=== PATIENT | male | born 1930 | race Caucasian/White ===

== ENCOUNTER 2019-05-06 20:49 | Inpatient (IN) | payer MEDICARE, BC ==
[~2019-05-06] VITALS: Ht 167.6 cm; Wt 73.9 kg
[2019-05-07] VITALS (7 sets, daily range): BP systolic 126–155; BP diastolic 42–75
[2019-05-07] MEDS ORDERED: ASPI81TA50 PO (03:36)
[2019-05-07] MEDS ORDERED: LOPE1LIQ7 PO (03:36)
[2019-05-07] MEDS ORDERED: LEVO112T4 PO (03:36)
[2019-05-07] MEDS ORDERED: ALEN70TA6 PO (03:36)
[2019-05-07] MEDS ORDERED: CYCL1DRO OU (03:36)
[2019-05-07] MEDS ORDERED: MAGN2400 PO (03:36)
[2019-05-07] MEDS ORDERED: DONE5TAB14 PO (03:36)
[2019-05-07] MEDS ORDERED: LUTE1CAP3 PO (03:36)
[2019-05-07] MEDS ORDERED: ACET325T9 PO (03:36)
[2019-05-07] MEDS ORDERED: SIMV40TA3 PO (03:36)
[2019-05-07] MEDS ORDERED: GLUC-9 PO (03:36)
[2019-05-07] MEDS ORDERED: OMEP20CA10 PO (03:36)
[2019-05-07] MEDS ORDERED: OMEG1CAP38 PO (03:36)
[2019-05-07] MEDS ORDERED: LOTE5DRO2 OP (03:36)
[2019-05-07] MEDS ORDERED: DEXT15DR16 OP (03:36)
[2019-05-07] MEDS ORDERED: LOPERAMIDE 2 MG/15 ML ORAL SUSP. PO PRN (04:45)
[2019-05-07] MEDS: LEVOTHYROXINE 112 MCG TABLET PO SCH (05:41)
[2019-05-07] MEDS: IV NORMAL SALINE 1000ML BAG 1,000 ML IV SCH ×2 (05:41→17:15)
[2019-05-07] MEDS ORDERED: ACETAMINOPHEN 325 MG TABLET. PO PRN (08:00)
[2019-05-07] MEDS: cycloSPORINE 0.05% OPHTH DROPERETTE. OU SCH ×2 (09:00→21:02)
[2019-05-07] MEDS ORDERED: LOTEPREDNOL ETAB 0.5% OPHTH SUSPENSION 5ML BOTTLE. OU SCH (09:00)
[2019-05-07] MEDS ORDERED: ASPIRIN ENTERIC COATED 81 MG TABLET.DR. PO SCH (09:00)
--- NOTE | 2019-05-07 09:53 | RAD ---
Ultrasound carotid Doppler 05/07/2019 8:25 AM INDICATION: Right-sided weakness and slurring of speech COMPARISON: None available TECHNIQUE: Sonographic imaging of the carotid vasculature was performed utilizing grayscale, color Doppler and spectral waveform analysis. FINDINGS: (All velocities are measured cm per second) Right carotid: Moderate calcified plaque is identified at the right carotid bifurcation with suspected 50 percent luminal narrowing of the proximal right internal carotid artery on grayscale images. Peak systolic velocity: Proximal common carotid artery: 84 Middle common carotid artery: 90 Distal common carotid artery: 90 Proximal internal carotid artery: 143 Middle internal carotid artery: 131 Distal internal carotid artery: 87 End-diastolic velocity: 30 External carotid artery: 130 Internal carotid artery/common carotid artery ratio: 0.96-1.58 Vertebral artery: Antegrade flow Left carotid: Mild calcified plaque is identified at the left carotid bifurcation without significant grayscale narrowing of the proximal left internal carotid artery. Peak systolic velocity: Proximal common carotid artery: 149 Middle common carotid artery: 125 Distal common carotid artery: 118 Proximal internal carotid artery: 74 Middle internal carotid artery: 99 Distal internal carotid artery: 80 End-diastolic velocity: 14 External carotid artery: 161 Internal carotid artery/common carotid artery ratio: 0.59-0.79 Vertebral artery: Antegrade flow IMPRESSION: 1. 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 There is no significant stenosis of the proximal left cervical internal carotid artery with mild plaque at the left carotid bifurcation. 2. Antegrade flow is identified in the vertebral arteries. 3. Evaluation of the carotid vasculature and measurements for luminal stenosis was performed utilizing NASCET criteria. Electronically signed by: Tayler Fernandes MD (05/07/2019 9:51 AM) [facility]
--- NOTE | 2019-05-07 11:08 | HP ---
ADMIT DATE: 05/07/2019 HISTORY OF PRESENT ILLNESS: The patient is an 88-year-old male patient, a resident at [facility], who was brought to the Emergency Room of [facility] for evaluation. The nursing staff at [place] as well as his family noted increasing change in his behavior status, intermittent weakness of his right side over the last 5 days, which seems to have worsened over the last 24 hours. According to his family, he fell a few times over this past weekend and then began exhibiting some intermittent weakness in his right side of the past few days. He actually was evaluated in the Emergency Room 2 days ago and recommended admitting into the hospital, but the family was adamant they take him back. However, yesterday around lunchtime he started having slurred speech and decreased communication. He has increased generalized weakness compared to what he was seen for according to staff who was familiar with him. The patient himself denied any pain. He apparently was evaluated in the Emergency Room and has had a CT scan of the head, which basically showed hypodensity in the white matter of the left frontal lobe, new compared to study done in 2018. This may represent an area of subacute or chronic ischemia. Further evaluation with MRI brain without contrast is recommended and therefore, the patient was transferred to [facility] for an MRI of the brain as well as to consult the Neurology team. The patient is demented and does not really give useful information. PAST MEDICAL HISTORY: Significant for cervical spinal stenosis, generalized osteoarthritis, dizziness and lightheadedness, gastroesophageal reflux disease, coronary artery disease, chronic constipation, pure hypercholesterolemia, hypothyroidism, actinic keratosis, angina pectoris, benign prostatic hypertrophy, recurrent urinary tract infection. He is also known to have essential hypertension, chronic pain syndrome, depressive disorder, keratoconjunctivitis sicca and glaucoma as well as macular degeneration, osteoporosis without pathological fracture and amnesia. PAST SURGICAL HISTORY: Significant for right knee surgery, partial thyroidectomy and bilateral cataract extraction. ALLERGIES: HE APPARENTLY IS ALLERGIC TO AMOXICILLIN, ANTICOAGULANT HEPARIN AND IBUPROFEN. MEDICATIONS: He is currently on following medications: He is on Aricept 5 mg at bedtime, simvastatin 40 mg at bedtime, omega-3 fatty acid 1000 mg twice a day, aspirin 81 mg once a day, acetaminophen 650 mg every 4 hours. He is on Lotemax 1 drop to both eyes daily, cyclosporine for Restasis 1 drop to both eyes twice a day. He is on artificial tears 1 drop to each eye 3 times a day, loperamide 2 mg every 6 hours as needed, milk of magnesia 30 mL p.o. daily p.r.n. for constipation, omeprazole 20 mg daily, levothyroxine sodium 112 mcg daily, alendronate sodium 70 mg p.o. daily. He is on glucosamine/chondroitin complex tablet 1 tablet once a day in routine. He is on Ocuvite 1 tablet daily. FAMILY HISTORY: Noncontributory. SOCIAL HISTORY: He currently resides at [facility] together with his . He used to live at [facility]. He apparently does not smoke, drink alcohol or use any drugs. 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 PHYSICAL EXAMINATION: GENERAL: When I saw him, he looked well and was clearly in no apparent respiratory distress, pale, but no jaundice, cyanosis or thyromegaly. No jugular venous distention. No lower limb edema. VITAL SIGNS: His heart rate was 79, blood pressure was 147/68, temperature was 98, respiratory rate was 17 and oxygen saturation was 96%. HEAD, EYES, EARS, NOSE AND THROAT: Showed normocephalic, atraumatic. NECK: Supple. HEART: Showed normal first and second heart sounds. No gallop or murmur. CHEST: Clear to auscultation. No crepitation or rhonchi. ABDOMEN: Distended, soft, nontender. No guarding or rigidity. No organomegaly. All hernia orifice intact. Bowel sounds normal. NEUROLOGIC: He is demented, but all his cranial nerves are intact. He seemed to be moving all his extremities without difficulty, although apparently yesterday, he was noted to have right-sided weakness, slurring of speech and increased confusion. LABORATORY DATA: His lab work showed that his white cell count was 11,600, hemoglobin 14.8, hematocrit 43.5, MCV 99, platelet count 261,000. His chemistry showed a serum sodium 137, potassium 3.4, chloride 100, bicarbonate 26, anion gap of 11, BUN 19, creatinine 1.2, estimated GFR was 57 mL per minute, his glucose 117, calcium was 9.4. Total bilirubin, AST, ALT, alkaline phosphatase were normal. Total protein 7.5, albumin 3.3. His prothrombin time, INR and aPTT are all normal. His CT scan of the head showed that the patient has no focal parenchymal lesion or hemorrhage identified. There is no midline shift or sulcal effacement. Hypodensity within the white matter of the left frontal lobe, which is new when compared to the study in 2018. Montesinos white distinction is preserved. The ventricular system is within normal limits without compression or hydrocephalus. The basal cisterns are well maintained. The visualized portion of the paranasal sinuses and mastoid air cells are well pneumatized. No acute fracture. His chest x-ray showed no acute cardiopulmonary process, mild elevation of the right hemidiaphragm. Therefore, the patient was admitted to [facility] to consult neurologist, arrange for an MRI of the brain and consult Physical and Occupational as well as Speech Therapy. JARRED VELA MD DR: ELADIO/galdino JOB#: [id number] / [id number]
--- NOTE | 2019-05-07 15:37 | RAD ---
EXAMINATION: Magnetic resonance imaging (MRI) of the brain and brainstem without contrast 05/07/2019 1:29 PM HISTORY: Stroke TECHNIQUE: Multiplanar multi-weighted MRI of the brain and brainstem was performed without intravenous contrast using the general brain protocol. COMPARISON: None available. FINDINGS: The scalp and calvarium are normal. The superior sagittal sinus demonstrates normal venous flow. The corpus callosum is normal in shape and signal intensity. The pituitary and sella are normal. The brainstem and craniocervical junction are unremarkable. There is diffusion signal hyperintensity involving the left cingulate gyrus and medial left frontal lobe in the expected distribution of the left anterior cerebral artery. There is corresponding low ADC signal. There is involvement of the body of the corpus callosum on the left. There are T2/FLAIR signal hyperintense foci in the periventricular and subcortical white matter with areas of confluence most suggestive of moderate chronic small vessel ischemic changes. The susceptibility weighted sequences reveal no evidence of acute or chronic hemorrhage. Ventricles, sulci and basal cisterns are prominent compatible with moderate generalized cerebral volume loss. No hydrocephalus. There is mild to moderate cerebellar volume loss. The paranasal sinuses are normal. The visualized portions of the mastoids are unremarkable. The orbits appear normal with exception of bilateral lens replacement. Normal flow voids are demonstrated in the carotid arteries and basilar artery. There is irregularity of the left anterior cerebral artery flow void which may reflect intracranial atherosclerotic changes. IMPRESSION: 1. 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 Findings are within the region of the left anterior cerebral artery territory. There is associated cytotoxic edema without significant midline shift. No acute intracranial hemorrhage. 2. There are T2/FLAIR signal hyperintense foci in the periventricular and subcortical white matter with areas of confluence most suggestive of moderate chronic small vessel ischemic changes. 3. Moderate general cerebral volume loss. FOR INTERNAL CODING PURPOSES Critical result: Findings discussed with Addi, the patient's nurse, at 05/07/2019 3:31 PM. RESULT CODE: (C) Electronically signed by: Tayler Fernandes MD (05/07/2019 3:34 PM) [facility]
[2019-05-07] MEDS: ASPIRIN ENTERIC COATED 325 MG TABLET.DR. PO SCH (17:15)
--- NOTE | 2019-05-07 18:51 | PDOC2 ---
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 Cerebral edema. Metabolic encephalopathy. 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 CAD. HTN. HLD. Hypothyroidism. RECOMMENDATIONS/PLAN: ASA 325 mg daily. Zocor 40 mg HS. Echo. Lab: see orders. Consulted Vascular Surgery. PT/PT. Rehab. HISTORY OF THE PRESENT ILLNESS: This is an 88-year-old male patient, a resident at [facility], who was brought to the Emergency Room of [facility] due to concerns of TIA or CVA.. The nursing staff at [place] as well as his family noted increasing change in his behavior status, intermittent weakness of his right side over the last 5 days, which seems to have worsened over the last 24 hours. He fell a few times over this past weekend then family noted some intermittent weakness in his right side of the past few days. After initial evaluation in [facility], he was transferred to [facility]. PAST MEDICAL HISTORY: Cervical spinal stenosis, generalized osteoarthritis, dizziness and lightheadedness, gastroesophageal reflux disease, coronary artery disease, chronic constipation, pure hypercholesterolemia, hypothyroidism, actinic keratosis, angina pectoris, benign prostatic hypertrophy, recurrent urinary tract infection. He is also known to have essential hypertension, chronic pain syndrome, depressive disorder, keratoconjunctivitis sicca and glaucoma as well as macular degeneration, osteoporosis without pathological fracture and amnesia. PAST SURGICAL HISTORY: Right knee surgery, partial thyroidectomy and bilateral cataract extraction. ALLERGIES: ALLERGIC TO AMOXICILLIN, ANTICOAGULANT HEPARIN AND IBUPROFEN. FAMILY HISTORY: Noncontributory. SOCIAL HISTORY: He currently resides at [facility] together with his . He used to live at [facility]. He apparently does not smoke, drink alc ohol or use any drugs. 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 MEDICATIONS: Refer to [facility] REVIEW OF SYSTEMS: Constitutional: No malnutrition, weight loss, cachexia. Head: No recent traumatic brain or head injury. Skin: No edema, or rash. Ear: No infection. Eyes: No vision loss or color blindness. Nose: No bleeding or purulent discharges. Hearing: Hearing decrease. Neck: No injury. Cardiac: CAD, HTN, HLD. Pulmonary: No COPD. GI: GERD. Urinary/genital: NUTI. Endocrinologic: Hypothyroidism. Skeletomuscular: Generalized weakness. Neurological: see HP. Psychiatric: Denies drug use/abuse. Otherwise, not [id number] review of systems. PHYSICAL EXAMINATION: General appearance is in subacute distress. HEENT: Normocephalic and nontraumatic. Eyes, nose, ears, and throat are unremarkable. Neck is supple. No lymphadenopathy. No crepitus. Cardiovascular: S1, S2. Pulmonary: mildly decreased to auscultation bilaterally. Abdomen: Bowel sounds are positive. Extremities: No rash, lesions, or edema. No restriction of range of motion NEUROLOGICAL EXAMINATION: Awake. Not oriented to time, place and person. PERRL. EOMI. CN: no focal findings. Muscle tone: within normal. Muscle strength: 4 UE, 4- LE. DTR: 1-2 Plantar reflex: Neutral response bilaterally Gait: not examined in bed. Sensory exam: no abnormal findings. No other cerebellar signs elicited. F-T-N test not performed due to not follow commands. Current Medications Current Medications Current Medications Acetaminophen (Tylenol) 650 mg PRN Q4HRS PRN PO MILD PAIN / TEMP; Start 05/07/19 at 08:00 Aspirin (Ecotrin) 81 mg DAILY PO ; Start 05/07/19 at 09:00; Stop 05/07/19 at 16:30; Status DC Cyclosporine (Restasis) 1 drop BID OU Last administered on 05/07/19at 09:00; Start 05/07/19 at 09:00 Levothyroxine Sodium (Synthroid) 112 mcg DAILY06 PO Last administered on 05/07/19at 05:41; Start 05/07/19 at 06:00 Loperamide HCl (Immodium Oral Susp) 2 mg PRN DAILY PRN PO DIARRHEA; Start 05/07/19 at 04:45 Loteprednol Etabonate (Lotemax) 1 drop DAILY OU ; Start 05/07/19 at 09:00; Stop 05/07/19 at 07:12; Status DC Simvastatin (Zocor) 40 mg HS PO ; Start 05/07/19 at 21:00 Sodium Chloride 1,000 ml @ 75 mls/hr [id number] IV Last administered on 05/07at 17:15; Start 05/07/19 at 05:00 Aspirin (Ecotrin) 325 mg DAILYWBKFT PO Last administered on 05/07/19at 17:15; Start 05/07/19 at 16:30 Active Scripts Active Reported Imodium A-D (Loperamide Hcl) 1 Mg/7.5 Ml Liquid 2 Mg PO PRN DAILY PRN Milk Of Magnesia (Magnesium Hydroxide) 2,400 Mg/10 Ml Oral.susp 2,400 Mg PO PRN DAILY Donepezil Hcl 5 Mg Tab.rapdis 5 Mg PO HS Lutein 15 Mg Softgel (Lutein Extract/Zeaxanthin Ext) 1 Each Capsule 1 Each PO DAILY Genteal Tears 0.1%-0.3% Drop (Dextran 70/Hypromellose) 15 Ml Drops 15 Ml OP TID Lotemax (Loteprednol Etabonate) 5 Ml Drops.susp 5 Ml OP DAILY Alendronate Sodium 70 Mg Tablet 70 Mg PO WEEKLY Takes on Mondays Omeprazole 20 Mg Capsule. 20 Mg PO DAILY Simvastatin 40 Mg Tablet 40 Mg PO HS Glucosamine Chondroitin Caplet (Gluc Bran Dipo Ch/Rodrigue Bran/C/Melvin) 1 Each Tablet 1 Each PO DAILY [place] 3 Fish Oil Softgel ([place]-3 Fatty Acids/Fish Oil) 1 Each Capsule. 1 Each PO BID Aspir-Low (Aspirin) 81 Mg Tablet. 81 Mg PO DAILY Tylenol (Acetaminophen) 325 Mg Tablet 650 Mg PO Q4HRS Levothyroxine Sodium 112 Mcg Tablet 112 Mcg PO DAILYAC Restasis (Cyclosporine) 1 Each Droperette 1 Each OU BID Allergies Allergies: Allergies Coded Allergies Type Severity Reaction Last Updated Verified amoxicillin Allergy Intermediate 05/07/19 Yes apixaban Allergy Intermediate 05/07/19 Yes dabigatran etexilate Allergy Intermediate 05/07/19 Yes heparin Allergy Intermediate 05/07/19 Yes ibuprofen Allergy Intermediate 05/07/19 Yes warfarin Allergy Intermediate 05/07/19 Yes ROS Review of System The patient denies any associated fevers, chills, headache, ear pain, rhinorrhea, sore throat, stiff neck, productive cough, chest pain, shortness of breath, back or flank pain, abdominal pain, nausea, vomiting, diarrhea, constipation, dysuria, rash, numbness, weakness, tingling, incontinence, difficulty ambulating, or diaphoresis. Physical Exam Physical Exam General: Well developed, well nourished, no acute distress, well appearing HEENT: Pupils equally round and reactive to light, EOMI, no discharge, normal conjunctiva Neck: Supple, no nuchal rigidity, no JVD, trachea midline, no tenderness Cardiac: RRR, no murmurs, no gallops, no rubs Chest/Lungs: CTAB, no wheeze, no rhonchi, no crackles Abdomen: soft, non-distended, no guarding, no peritoneal signs, non-tender Back: No tenderness Extremities: no edema, pulses intact, non-tender,capillary refill <3 sec bilateral upper and lower extremities, Neuro: Alert and oriented x 4, no focal deficits, normal speech Vitals Vitals: Vital Signs Date Time Temp Pulse Resp B/P (MAP) Pulse Ox O2 Delivery O2 Flow Rate FiO2 05/07/19 16:30 Room Air 05/07/19 15:00 98.0 83 18 155/73 (100) 94 98.0 MUKUL RODRÍGUEZ MD May 07, 2019 18:51
[2019-05-07] MEDS: SIMVASTATIN 40 MG TABLET. PO SCH (21:02)
[2019-05-08 03:00] VITALS: BP 149/68
[2019-05-08 05:11] LABS: CALCIUM 8.6 mg/dL (8.5-10.1); CREATININE 0.9 mg/dL (0.7-1.3); GFR 79.6; POTASSIUM 3.1 mmol/L (3.5-5.1)
[2019-05-08 05:22] LABS: CHOLESTEROL/HDL RATIO 4.8
[2019-05-08] MEDS: LEVOTHYROXINE 112 MCG TABLET PO SCH (06:10)
[2019-05-08 07:00] VITALS: BP 134/60
[2019-05-08] MEDS: IV NORMAL SALINE 1000ML BAG 1,000 ML IV SCH ×2 (07:40→20:28)
[2019-05-08] MEDS ORDERED: POTASSIUM CHLORIDE 20 MEQ TABLET.ER. PO ONE (09:00)
--- NOTE | 2019-05-08 10:12 | PN ---
DATE: 05/08/2019 SUBJECTIVE: The patient is resting slightly propped up in bed, eating his breakfast comfortably. He is able to use his right hand, feeding himself. His MRI showed that he has an acute infarct involving the medial left frontal lobe with involvement of the cingulate gyrus and body of the corpus callosum, he has also right internal carotid artery showed bifurcation, stenosis 50-69%. PHYSICAL EXAMINATION: GENERAL: On examining him, he looked well and was clearly in no apparent respiratory distress. No pallor, jaundice, cyanosis or thyromegaly. No jugular venous distention. No limb edema. VITAL SIGNS: His heart rate was 82, blood pressure 149/69, temperature was 98.1, respiratory rate was 18 and oxygen saturation was 94%. HEAD, EYES, EARS, NOSE AND THROAT: Showed normocephalic, atraumatic. NECK: Supple. HEART: Showed normal first and second heart sounds. No gallop, rub or murmur. CHEST: Clear to auscultation. No crepitation or rhonchi. ABDOMEN: Distended, soft, nontender. No guarding or rigidity. No organomegaly. All hernial orifice intact. Bowel sounds normal. NEUROLOGIC: He was definitely awake, alert. All his cranial nerves are intact. He moves extremities without difficulty. His intake and output were incompletely recorded. LABORATORY DATA: Showed a serum sodium 142, potassium 3.1, chloride 108, bicarbonate 24, anion gap of 10, BUN 10, creatinine 0.9, estimated GFR was 79 mL per minute. His glucose was 103, calcium was 8.6. Serum triglycerides were 85, total cholesterol 191, LDL was 134, VLDL was 17, and HDL cholesterol was 40, ratio was 4.8. TSH was normal at 3.570. 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 PLAN: To continue with all his current medications. He is on simvastatin, aspirin, Tylenol, levothyroxine and loperamide. The vascular surgeon was consulted. The result has not been seen yet. Have consulted Physical and Occupational therapy. We will replenish his potassium. JARRED VELA MD DR: ELADIO/galdino JOB#: [id number] / [id number]
[2019-05-08] MEDS: cycloSPORINE 0.05% OPHTH DROPERETTE. OU SCH ×2 (10:18→20:29)
[2019-05-08] MEDS: ASPIRIN ENTERIC COATED 325 MG TABLET.DR. PO SCH (10:18)
[2019-05-08] MEDS: POTASSIUM CHLORIDE 20 MEQ TABLET.ER. PO SCH ×3 (11:04→20:29)
[2019-05-08 11:30] VITALS: BP 136/58
--- NOTE | 2019-05-08 12:58 | PDOC ---
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 CAD. HTN. HLD. Hypothyroidism. Plan Aspirin failure, reduced to 81 mg daily and add clopidogrel Zocor 40 mg HS. Await Echo. Does not need Vascular Surgery consult. Rehab, will need SNU. Discussed with family including risks of bleeding on the aspirin/clopidogrel com bination Subjective No complaints Objective Vital Signs Date Time Temp Pulse Resp B/P (MAP) Pulse Ox O2 Delivery O2 Flow Rate FiO2 05/08/19 08:00 Room Air 05/08/19 07:00 98.4 80 24 134/60 (84) 93 98.4 Intake and Output 05/08/19 07:00 Intake Total 240 ml Output Total 1700 ml Balance -1460 ml Intake Oral 240 ml Output Urine Total 1700 ml # Voids 3 PHYSICAL EXAM Alert. Oriented to person, does not know location or date. PERRL. EOMI. CN: Dysarthria, right central facial paresis Muscle tone: normal. Muscle strength: 4/5, weaker on right DTR: 1+ Plantar reflex: flexor Gait: not examined in bed. Sensory exam: no abnormal findings. No cerebellar signs elicited. Review of Relevant I have reviewed the following items hector (where applicable) has been applied. Labs Laboratory Tests Test 05/08/19 04:35 Sodium Level 142 mmol/L (136-145) Potassium Level 3.1 mmol/L (3.5-5.1) Chloride Level 108 mmol/L (98-107) Carbon Dioxide Level 24 mmol/L (21-32) Anion Gap 10 (6-14) Blood Urea Nitrogen 10 mg/dL (8-26) Creatinine 0.9 mg/dL (0.7-1.3) Estimated GFR (Cockcroft-Gault) 79.6 Glucose Level 103 mg/dL (70-99) Calcium Level 8.6 mg/dL (8.5-10.1) Triglycerides Level 85 mg/dL (0-150) Cholesterol Level 191 mg/dL (0-200) LDL Cholesterol, Calculated 134 mg/dL (0-100) VLDL Cholesterol, Calculated 17 mg/dL (0-40) Non-HDL Cholesterol Calculated 151 mg/dL (0-129) HDL Cholesterol 40 mg/dL (40-60) Cholesterol/HDL Ratio 4.8 Thyroid Stimulating Hormone (TSH) 3.570 uIU/mL (0.358-3.74) Laboratory Tests Test 05/08/19 04:35 Sodium Level 142 mmol/L (136-145) Potassium Level 3.1 mmol/L (3.5-5.1) Chloride Level 108 mmol/L (98-107) Carbon Dioxide Level 24 mmol/L (21-32) Anion Gap 10 (6-14) Blood Urea Nitrogen 10 mg/dL (8-26) Creatinine 0.9 mg/dL (0.7-1.3) Estimated GFR (Cockcroft-Gault) 79.6 Glucose Level 103 mg/dL (70-99) Calcium Level 8.6 mg/dL (8.5-10.1) Triglycerides Level 85 mg/dL (0-150) Cholesterol Level 191 mg/dL (0-200) LDL Cholesterol, Calculated 134 mg/dL (0-100) VLDL Cholesterol, Calculated 17 mg/dL (0-40) Non-HDL Cholesterol Calculated 151 mg/dL (0-129) HDL Cholesterol 40 mg/dL (40-60) Cholesterol/HDL Ratio 4.8 Thyroid Stimulating Hormone (TSH) 3.570 uIU/mL (0.358-3.74) Medications Current Medications Acetaminophen (Tylenol) 650 mg PRN Q4HRS PRN PO MILD PAIN / TEMP; Start 05/07/19 at 08:00 Aspirin (Ecotrin) 81 mg DAILY PO ; Start 05/07/19 at 09:00; Stop 05/07/19 at 16:30; Status DC Cyclosporine (Restasis) 1 drop BID OU Last administered on 05/08/19at 10:18; Start 05/07/19 at 09:00 Levothyroxine Sodium (Synthroid) 112 mcg DAILY06 PO Last administered on at 06:10; Start 05/07/19 at 06:00 Loperamide HCl (Immodium Oral Susp) 2 mg PRN DAILY PRN PO DIARRHEA; Start 05/07/19 at 04:45 Loteprednol Etabonate (Lotemax) 1 drop DAILY OU ; Start 05/07/19 at 09:00; Stop 05/07/19 at 07:12; Status DC Simvastatin (Zocor) 40 mg HS PO Last administered on 05/07/19at 21:02; Start 05/07/19 at 21:00 Sodium Chloride 1,000 ml @ 75 mls/hr [id number] IV Last administered on 05/07/19at 17:15; Start 05/07/19 at 05:00 Aspirin (Ecotrin) 325 mg DAILYWBKFT PO Last administered on 05/08/19at 10:18; Start 05/07/19 at 16:30 Potassium Chloride (Klor-Con) 40 meq 1X ONCE PO Last administered on 9at 10:18; Start 05/08/19 at 09:00; Stop 05/08/19 at 09:01; Status DC Potassium Chloride (Klor-Con) 20 meq TID PO Last administered on 05/08/19at 11:04; Start 05/08/19 at 10:00 Active Scripts Active Reported Imodium A-D (Loperamide Hcl) 1 Mg/7.5 Ml Liquid 2 Mg PO PRN DAILY PRN Milk Of Magnesia (Magnesium Hydroxide) 2,400 Mg/10 Ml Oral.susp 2,400 Mg PO PRN DAILY Donepezil Hcl 5 Mg Tab.rapdis 5 Mg PO HS Lutein 15 Mg Softgel (Lutein Extract/Zeaxanthin Ext) 1 Each Capsule 1 Each PO DAILY Genteal Tears 0.1%-0.3% Drop (Dextran 70/Hypromellose) 15 Ml Drops 15 Ml OP TID Lotemax (Loteprednol Etabonate) 5 Ml Drops.susp 5 Ml OP DAILY Alendronate Sodium 70 Mg Tablet 70 Mg PO WEEKLY Takes on Mondays Omeprazole 20 Mg Capsule. 20 Mg PO DAILY Simvastatin 40 Mg Tablet 40 Mg PO HS Glucosamine Chondroitin Caplet (Gluc Bran Dipo Ch/Ordrigue Bran/C/Melvin) 1 Each Tablet 1 Each PO DAILY Singer 3 Fish Oil Softgel ([place]inger-3 Fatty Acids/Fish Oil) 1 Each Capsule. 1 Each PO BID Aspir-Low (Aspirin) 81 Mg Tablet. 81 Mg PO DAILY Tylenol (Acetaminophen) 325 Mg Tablet 650 Mg PO Q4HRS Levothyroxine Sodium 112 Mcg Tablet 112 Mcg PO DAILYAC Restasis (Cyclosporine) 1 Each Droperette 1 Each OU BID Vitals/I & O Vital Sign - Last 24 Hours 05/07/19 05/07/19 05/07/19 05/07/19 15:00 16:30 19:00 23:00 Temp 98.0 98.2 97.8 98.0 98.2 97.8 Pulse 83 83 86 Resp 18 18 18 B/P (MAP) 155/73 (100) 145/74 (97) 153/75 (101) Pulse Ox 94 93 92 O2 Delivery Room Air Room Air Room Air Room Air 05/08/19 05/08/19 05/08/19 03:00 07:00 08:00 Temp 98.1 98.4 98.1 98.4 Pulse 82 80 Resp 18 24 B/P (MAP) 149/68 (95) 134/60 (84) Pulse Ox 94 93 O2 Delivery Room Air Room Air Room Air Intake and Output 05/07/19 05/07/19 05/08/19 15:00 23:00 07:00 Intake Total 0 ml 240 ml Output Total 50 ml 1650 ml Balance 0 ml 190 ml -1650 ml Images Magnetic resonance imaging (MRI) of the brain and brainstem without contrast 05/07/2019 1:29 PM HISTORY: Stroke TECHNIQUE: Multiplanar multi-weighted MRI of the brain and brainstem was performed without intravenous contrast using the general brain protocol. COMPARISON: None available. FINDINGS: The scalp and calvarium are normal. The superior sagittal sinus demonstrates normal venous flow. The corpus callosum is normal in shape and signal intensity. The pituitary and sella are normal. The brainstem and craniocervical junction are unremarkable. There is diffusion signal hyperintensity involving the left cingulate gyrus and medial left frontal lobe in the expected distribution of the left anterior cerebral artery. There is corresponding low ADC signal. There is involvement of the body of the corpus callosum on the left. There are T2/FLAIR signal hyperintense foci in the periventricular and subcortical white matter with areas of confluence most suggestive of moderate chronic small vessel ischemic changes. The susceptibility weighted sequences reveal no evidence of acute or chronic hemorrhage. Ventricles, sulci and basal cisterns are prominent compatible with moderate generalized cerebral volume loss. No hydrocephalus. There is mild to moderate cerebellar volume loss. The paranasal sinuses are normal. The visualized portions of the mastoids are unremarkable. The orbits appear normal with exception of bilateral lens replacement. Normal flow voids are demonstrated in the carotid arteries and basilar artery. There is irregularity of the left anterior cerebral artery flow void which may reflect intracranial atherosclerotic changes. IMPRESSION: 1. 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 Findings are within the region of the left anterior cerebral artery territory. There is associated cytotoxic edema without significant midline shift. No acute intracranial hemorrhage. 2. There are T2/FLAIR signal hyperintense foci in the periventricular and subcortical white matter with areas of confluence most suggestive of moderate chronic small vessel ischemic changes. 3. Moderate general cerebral volume loss. Ultrasound carotid Doppler 05/07/2019 8:25 AM INDICATION: Right-sided weakness and slurring of speech COMPARISON: None available TECHNIQUE: Sonographic imaging of the carotid vasculature was performed utilizing grayscale, color Doppler and spectral waveform analysis. FINDINGS: (All velocities are measured cm per second) Right carotid: Moderate calcified plaque is identified at the right carotid bifurcation with suspected 50 percent luminal narrowing of the proximal right internal carotid artery on grayscale images. Peak systolic velocity: Proximal common carotid artery: 84 Middle common carotid artery: 90 Distal common carotid artery: 90 Proximal internal carotid artery: 143 Middle internal carotid artery: 131 Distal internal carotid artery: 87 End-diastolic velocity: 30 External carotid artery: 130 Internal carotid artery/common carotid artery ratio: 0.96-1.58 Vertebral artery: Antegrade flow Left carotid: Mild calcified plaque is identified at the left carotid bifurcation without significant grayscale narrowing of the proximal left internal carotid artery. Peak systolic velocity: Proximal common carotid artery: 149 Middle common carotid artery: 125 Distal common carotid artery: 118 Proximal internal carotid artery: 74 Middle internal carotid artery: 99 Distal internal carotid artery: 80 End-diastolic velocity: 14 External carotid artery: 161 Internal carotid artery/common carotid artery ratio: 0.59-0.79 Vertebral artery: Antegrade flow IMPRESSION: 1. 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 There is no significant stenosis of the proximal left cervical internal carotid artery with mild plaque at the left carotid bifurcation. 2. Antegrade flow is identified in the vertebral arteries. 3. Evaluation of the carotid vasculature and measurements for luminal stenosis was performed utilizing NASCET criteria. CHRISTIAN MESSINA MD May 08, 2019 12:57
[2019-05-08 15:55] VITALS: BP 153/74
[2019-05-08 19:00] VITALS: BP 149/64
[2019-05-08] MEDS: SIMVASTATIN 40 MG TABLET. PO SCH (20:29)
[2019-05-08 23:00] VITALS: BP 166/61
[2019-05-09 01:00] VITALS: BP 125/78
[2019-05-09 03:00] VITALS: BP 151/85
[2019-05-09] MEDS: LEVOTHYROXINE 112 MCG TABLET PO SCH (05:48)
[2019-05-09 07:03] VITALS: BP 140/61
[2019-05-09 07:24] LABS: HEMATOCRIT 38.6 % (39.0-53.0); HEMOGLOBIN 13.5 g/dL (13.0-17.5); RED BLOOD COUNT 3.92 x10^6/uL (4.30-5.70); RED CELL DISTRIBUTION WIDTH 14.8 % (11.5-14.5); WHITE BLOOD COUNT 9.4 x10^3/uL (4.0-11.0)
[2019-05-09 07:44] LABS: CALCIUM 8.5 mg/dL (8.5-10.1); CREATININE 0.9 mg/dL (0.7-1.3); GFR 79.6; POTASSIUM 3.9 mmol/L (3.5-5.1)
[2019-05-09] MEDS: CLOPIDOGREL BISULFATE 75 MG TABLET PO SCH (08:31)
[2019-05-09] MEDS: ASPIRIN ENTERIC COATED 81 MG TABLET.DR. PO SCH (08:31)
[2019-05-09] MEDS: POTASSIUM CHLORIDE 20 MEQ TABLET.ER. PO SCH ×3 (08:31→21:00)
[2019-05-09] MEDS: cycloSPORINE 0.05% OPHTH DROPERETTE. OU SCH ×2 (08:31→21:47)
[2019-05-09] MEDS: IV NORMAL SALINE 1000ML BAG 1,000 ML IV SCH ×2 (10:05→21:55)
--- NOTE | 2019-05-09 10:20 | PN ---
DATE: 05/09/2019 SUBJECTIVE: The patient is resting, slightly propped up in bed, in no apparent distress. He is definitely different than yesterday. He is unable to move his right upper extremity and he is seemed to have difficulty expressing himself. He seemed to have another stroke last night and yesterday morning, he was able to feed himself and was able to talk without difficulty. According to his daughter, he has this problem since yesterday afternoon at lunchtime. PHYSICAL EXAMINATION: GENERAL: When I examined him this morning, he looked pale, but no jaundice or cyanosis. No lymphadenopathy, no thyromegaly. No jugular venous distention. No limb edema. VITAL SIGNS: His heart rate was 65, blood pressure was 151/85, temperature was 97.9, respiratory rate was 18 and oxygen saturation was 95%. HEAD, EYES, EARS, NOSE AND THROAT: Showed normocephalic, atraumatic. NECK: Supple. HEART: Showed normal first and second heart sounds. No gallop, rub or murmur. CHEST: Clear to auscultation. No crepitation or rhonchi. ABDOMEN: Distended, soft, nontender. NEUROLOGIC: He definitely has right-sided weakness, has also expressive aphasia. His intake was 240, output was 1700. LABORATORY DATA: His lab work this morning showed a white cell count 9400, hemoglobin 13.5, hematocrit 38.6, MCV 98 and platelet count 217,000. Serum sodium 141, potassium 3.9, chloride 111, bicarbonate 20, anion gap of 10, BUN 12, creatinine 0.9, estimated GFR was 79 mL per minute. His glucose was 84 and calcium was 8.5. ASSESSMENT: The patient definitely has change in neurological status. He seemed to have developed right-sided hemiplegia and expressive aphasia. I will consult the speech therapy and continue meanwhile on IV fluid. I do not think he is a candidate for TPA as this change, probably started yesterday according to his daughter. JARRED VELA MD DR: ELADIO/galdino JOB#: [id number] / [id number]
--- NOTE | 2019-05-09 11:25 | PDOC ---
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 CAD. HTN. HLD. Hypothyroidism. Plan Aspirin failure, reduced to 81 mg daily and added clopidogrel Zocor 40 mg HS. Await Echo. Does not need Vascular Surgery consult. Rehab, will need SNU. Discussed with family. Fluctuations are normal in this type of stroke, also I think some of the problem is that he is fatigued early in the morning and was not cooperating with the exam, in any case, he is actually better right now than he was when I saw him yesterday. Therefore I see no need to repeat imaging studies. Objective Vital Signs Date Time Temp Pulse Resp B/P (MAP) Pulse Ox O2 Delivery O2 Flow Rate FiO2 05/09/19 07:03 97.6 59 18 140/61 (87) 95 Room Air 97.6 Intake and Output 05/09/19 06:59 Intake Total 230 ml Output Total 1250 ml Balance -1020 ml Intake Oral 230 ml Output Urine Total 1250 ml # Voids 5 PHYSICAL EXAM Alert. Oriented to person, does not know location or date. PERRL. EOMI. CN: Dysarthria, right central facial paresis Muscle tone: normal. Muscle strength: 4/5, weaker on right DTR: 1+ Plantar reflex: flexor Gait: not examined in bed. Sensory exam: no abnormal findings. No cerebellar signs elicited. Review of Relevant I have reviewed the following items hector (where applicable) has been applied. Labs Laboratory Tests Test 05/08/19 04:35 05/09/19 06:04 Sodium Level 142 mmol/L (136-145) 141 mmol/L (136-145) Potassium Level 3.1 mmol/L (3.5-5.1) 3.9 mmol/L (3.5-5.1) Chloride Level 108 mmol/L (98-107) 111 mmol/L (98-107) Carbon Dioxide Level 24 mmol/L (21-32) 20 mmol/L (21-32) Anion Gap 10 (6-14) 10 (6-14) Blood Urea Nitrogen 10 mg/dL (8-26) 12 mg/dL (8-26) Creatinine 0.9 mg/dL (0.7-1.3) 0.9 mg/dL (0.7-1.3) Estimated GFR (Cockcroft-Gault) 79.6 79.6 Glucose Level 103 mg/dL (70-99) 84 mg/dL (70-99) Calcium Level 8.6 mg/dL (8.5-10.1) 8.5 mg/dL (8.5-10.1) Triglycerides Level 85 mg/dL (0-150) Cholesterol Level 191 mg/dL (0-200) LDL Cholesterol, Calculated 134 mg/dL (0-100) VLDL Cholesterol, Calculated 17 mg/dL (0-40) Non-HDL Cholesterol Calculated 151 mg/dL (0-129) HDL Cholesterol 40 mg/dL (40-60) Cholesterol/HDL Ratio 4.8 Thyroid Stimulating Hormone (TSH) 3.570 uIU/mL (0.358-3.74) White Blood Count 9.4 x10^3/uL (4.0-11.0) Red Blood Count 3.92 x10^6/uL (4.30-5.70) Hemoglobin 13.5 g/dL (13.0-17.5) Hematocrit 38.6 % (39.0-53.0) Mean Corpuscular Volume 98 fL (79-100) Mean Corpuscular Hemoglobin 35 pg (25-35) Mean Corpuscular Hemoglobin Concent 35 g/dL (31-37) Red Cell Distribution Width 14.8 % (11.5-14.5) Platelet Count 217 x10^3/uL (140-400) Laboratory Tests Test 05/09/19 06:04 White Blood Count 9.4 x10^3/uL (4.0-11.0) Red Blood Count 3.92 x10^6/uL (4.30-5.70) Hemoglobin 13.5 g/dL (13.0-17.5) Hematocrit 38.6 % (39.0-53.0) Mean Corpuscular Volume 98 fL (79-100) Mean Corpuscular Hemoglobin 35 pg (25-35) Mean Corpuscular Hemoglobin Concent 35 g/dL (31-37) Red Cell Distribution Width 14.8 % (11.5-14.5) Platelet Count 217 x10^3/uL (140-400) Sodium Level 141 mmol/L (136-145) Potassium Level 3.9 mmol/L (3.5-5.1) Chloride Level 111 mmol/L (98-107) Carbon Dioxide Level 20 mmol/L (21-32) Anion Gap 10 (6-14) Blood Urea Nitrogen 12 mg/dL (8-26) Creatinine 0.9 mg/dL (0.7-1.3) Estimated GFR (Cockcroft-Gault) 79.6 Glucose Level 84 mg/dL (70-99) Calcium Level 8.5 mg/dL (8.5-10.1) Medications Current Medications Acetaminophen (Tylenol) 650 mg PRN Q4HRS PRN PO MILD PAIN / TEMP; Start 05/07/19 at 08:00 Aspirin (Ecotrin) 81 mg DAILY PO ; Start 05/07/19 at 09:00; Stop 05/07/19 at 16:30; Status DC Cyclosporine (Restasis) 1 drop BID OU Last administered on 05/09/19at 08:31; Start 05/07/19 at 09:00 Levothyroxine Sodium (Synthroid) 112 mcg DAILY06 PO Last administered on at 05:48; Start 05/07/19 at 06:00 Loperamide HCl (Immodium Oral Susp) 2 mg PRN DAILY PRN PO DIARRHEA; Start 05/07/19 at 04:45 Loteprednol Etabonate (Lotemax) 1 drop DAILY OU ; Start 05/07/19 at 09:00; Stop 05/07/19 at 07:12; Status DC Simvastatin (Zocor) 40 mg HS PO Last administered on 05/08/19at 20:29; Start 05/07/19 at 21:00 Sodium Chloride 1,000 ml @ 75 mls/hr [id number] IV Last administered on 05/09/19at 10:05; Start 05/07/19 at 05:00 Aspirin (Ecotrin) 325 mg DAILYWBKFT PO Last administered on 05/08/19at 10:18; Start 05/07/19 at 16:30; Stop 05/08/19 at 12:59; Status DC Potassium Chloride (Klor-Con) 40 meq 1X ONCE PO Last administered on 05/08/19at 10:18; Start 05/08/19 at 09:00; Stop 05/08/19 at 09:01; Status DC Potassium Chloride (Klor-Con) 20 meq TID PO Last administered on 05/09/19at 08:31; Start 05/08/19 at 10:00 Aspirin (Ecotrin) 81 mg DAILYWBKFT PO Last administered on 05/09/19at 08:31; Start 05/09/19 at 08:00 Clopidogrel Bisulfate (Plavix) 75 mg DAILYWBKFT PO Last administered on 05/09/19at 08:31; Start 05/09/19 at 08:00 Active Scripts Active Reported Imodium A-D (Loperamide Hcl) 1 Mg/7.5 Ml Liquid 2 Mg PO PRN DAILY PRN Milk Of Magnesia (Magnesium Hydroxide) 2,400 Mg/10 Ml Oral.susp 2,400 Mg PO PRN DAILY Donepezil Hcl 5 Mg Tab.rapdis 5 Mg PO HS Lutein 15 Mg Softgel (Lutein Extract/Zeaxanthin Ext) 1 Each Capsule 1 Each PO DAILY Genteal Tears 0.1%-0.3% Drop (Dextran 70/Hypromellose) 15 Ml Drops 15 Ml OP TID Lotemax (Loteprednol Etabonate) 5 Ml Drops.susp 5 Ml OP DAILY Alendronate Sodium 70 Mg Tablet 70 Mg PO WEEKLY Takes on Mondays Omeprazole 20 Mg Capsule. 20 Mg PO DAILY Simvastatin 40 Mg Tablet 40 Mg PO HS Glucosamine Chondroitin Caplet (Gluc Bran Dipo Ch/Rodrigue Bran/C/Melvin) 1 Each Tablet 1 Each PO DAILY [place] 3 Fish Oil Softgel ([place]-3 Fatty Acids/Fish Oil) 1 Each Capsule. 1 Each PO BID Aspir-Low (Aspirin) 81 Mg Tablet.dr 81 Mg PO DAILY Tylenol (Acetaminophen) 325 Mg Tablet 650 Mg PO Q4HRS Levothyroxine Sodium 112 Mcg Tablet 112 Mcg PO DAILYAC Restasis (Cyclosporine) 1 Each Droperette 1 Each OU BID Vitals/I & O Vital Sign - Last 24 Hours 05/08/19 05/08/19 05/08/19 05/08/19 11:30 15:55 19:00 20:00 Temp 98.2 98.1 98.5 98.2 98.1 98.5 Pulse 75 69 76 Resp 20 20 18 B/P (MAP) 136/58 (84) 153/74 (100) 149/64 (92) Pulse Ox 98 97 96 O2 Delivery Room Air Room Air Room Air Room Air 05/08/19 05/09/19 05/09/19 23:00 03:00 07:03 Temp 97.8 97.9 97.6 97.8 97.9 97.6 Pulse 72 65 59 Resp 20 18 18 B/P (MAP) 166/61 (96) 151/85 (107) 140/61 (87) Pulse Ox 96 95 95 O2 Delivery Room Air Room Air Room Air Intake and Output 05/08/19 05/08/19 05/09/19 14:59 22:59 06:59 Intake Total 160 ml 70 ml Output Total 200 ml 500 ml 550 ml Balance -200 ml -340 ml -480 ml CHRISTIAN MESSINA MD May 09, 2019 11:25
[2019-05-09 14:47] VITALS: BP 141/78
[2019-05-09 19:00] VITALS: BP 170/70
[2019-05-09] MEDS: SIMVASTATIN 40 MG TABLET. PO SCH (21:00)
[2019-05-09 23:04] VITALS: BP 142/74
[2019-05-10 03:04] VITALS: BP 121/67
[2019-05-10] MEDS: LEVOTHYROXINE 112 MCG TABLET PO SCH (05:20)
[2019-05-10 07:00] VITALS: BP 154/55
[2019-05-10 07:48] LABS: CALCIUM 8.6 mg/dL (8.5-10.1); CREATININE 0.9 mg/dL (0.7-1.3); GFR 79.6; POTASSIUM 3.9 mmol/L (3.5-5.1)
[2019-05-10] MEDS: POTASSIUM CHLORIDE 20 MEQ TABLET.ER. PO SCH ×2 (09:00→15:04)
[2019-05-10 11:00] VITALS: BP 139/62
--- NOTE | 2019-05-10 11:24 | CARD ---
MR#: [id number] Date of Study: 05/07/2019 Ordering Physician: MUKUL RODRÍGUEZ, Referring Physician: MUKUL RODRÍGUEZ, Tech: Jaz Whittaker APPROVED REPORT EXAM: Two-dimensional and M-mode echocardiogram with Doppler and color Doppler. Other Information Quality : AverageHR: 90bpm INDICATION CVA/TIA Cardiac Disease: CAD RISK FACTORS Hypertension 2D DIMENSIONS RVDd3.0 (2.9-3.5cm)Left Atrium(2D)3.2 (1.6-4.0cm) IVSd1.3 (0.7-1.1cm)Aortic Root(2D)3.2 (2.0-3.7cm) LVDd4.3 (3.9-5.9cm)LVOT Diameter2.0 (1.8-2.4cm) PWd1.4 (0.7-1.1cm)LVDs3.1 (2.5-4.0cm) FS (%) 26.7 %SV43.4 ml LVEF(%)52.5 (>50%) Aortic Valve AoV Peak Santi.113.0cm/sAoV VTI18.3cm AO Peak GR.5.1mmHgLVOT VTI 10.21cm AO Mean GR.2mmHg Mitral Valve MV E Xivjlodi63.3cm/sMV DECEL [id number] MV A Jaiqueeh27.2cm/sE/A Ratio0.8 TDI Lateral E' P. V6.76cm/sMedial E' P. V4.44cm/s E/Lateral E'9.2E/Medial E'14.0 Pulmonary Vein S1 [place]31.1cm/sS2 Stjyspfv51.14cm/s D2 Mttsushe94.1cm/sPVa [id number] LEFT VENTRICLE The left ventricle is normal size. There is moderate concentric left ventricular hypertrophy. The lef t ventricular systolic function is normal. The ejection fraction is 55-60%. There is normal LV segmen lali wall motion. Transmitral Doppler flow pattern is Grade I-abnormal relaxation pattern. RIGHT VENTRICLE The right ventricle is normal size. There is normal right ventricular wall thickness. The right ventr icular systolic function is normal. ATRIA The left atrium size is normal. The right atrium size is normal. The interatrial septum is intact wit h no evidence for an atrial septal defect or patent foramen ovale as noted on 2-D or Doppler imaging. AORTIC VALVE The aortic valve is normal in structure and function. Doppler and Color Flow revealed no significant aortic regurgitation. There is no significant aortic valvular stenosis. MITRAL VALVE The mitral valve is normal in structure and function. There is no evidence of mitral valve prolapse. There is no mitral valve stenosis. Doppler and Color Flow revealed no mitral valve regurgitation note d. TRICUSPID VALVE The tricuspid valve is not well visualized. Doppler and Color Flow revealed no tricuspid valve regurg itation noted. There is no tricuspid valve stenosis. PULMONIC VALVE The pulmonic valve is not well visualized. Doppler and Color Flow revealed no pulmonic valvular regur gitation. GREAT VESSELS The aortic root is normal in size. The IVC was not visualized. PERICARDIAL EFFUSION There is no evidence of significant pericardial effusion. Critical Notification Critical Value: No <Conclusion> Technically difficult study. Valves not well visualized. The left ventricular systolic function is normal. The ejection fraction is 55-60%. There is normal LV segmental wall motion. Transmitral Doppler flow pattern is Grade I-abnormal relaxation pattern. There is no evidence of significant pericardial effusion. Signed by : Varinder Li, Electronically Approved : 05/07/2019 17:25:22
[2019-05-10] MEDS: IV NORMAL SALINE 1000ML BAG 1,000 ML IV SCH (12:43)
--- NOTE | 2019-05-10 13:02 | PDOC ---
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 CAD. HTN. HLD. Hypothyroidism. Plan Aspirin failure, reduced to 81 mg daily and added clopidogrel Zocor 40 mg HS. Rehab, will need SNU. Speech therapy was concerned about aspiration when patient is not alert, but he does swallow fine when alert, so I told the nurse to feed him as long as he is awake. Subjective Denies pain Objective Vital Signs Date Time Temp Pulse Resp B/P (MAP) Pulse Ox O2 Delivery O2 Flow Rate FiO2 05/10/19 11:00 97.3 62 18 139/62 (87) 98 Room Air 97.3 Intake and Output 05/10/19 07:00 Intake Total 1000 ml Output Total 775 ml Balance 225 ml IV Total 1000 ml Output Urine Total 775 ml # Voids 2 PHYSICAL EXAM Alert. Oriented to person, does not know location or date. PERRL. EOMI. CN: Dysarthria, right central facial paresis Muscle tone: normal. Muscle strength: 4/5, weaker on right DTR: 1+ Plantar reflex: flexor Gait: not examined in bed. Sensory exam: no abnormal findings. No cerebellar signs elicited. Review of Relevant I have reviewed the following items hector (where applicable) has been applied. Labs Laboratory Tests Test 05/09/19 06:04 05/10/19 06:34 White Blood Count 9.4 x10^3/uL (4.0-11.0) Red Blood Count 3.92 x10^6/uL (4.30-5.70) Hemoglobin 13.5 g/dL (13.0-17.5) Hematocrit 38.6 % (39.0-53.0) Mean Corpuscular Volume 98 fL (79-100) Mean Corpuscular Hemoglobin 35 pg (25-35) Mean Corpuscular Hemoglobin Concent 35 g/dL (31-37) Red Cell Distribution Width 14.8 % (11.5-14.5) Platelet Count 217 x10^3/uL (140-400) Sodium Level 141 mmol/L (136-145) 141 mmol/L (136-145) Potassium Level 3.9 mmol/L (3.5-5.1) 3.9 mmol/L (3.5-5.1) Chloride Level 111 mmol/L (98-107) 110 mmol/L (98-107) Carbon Dioxide Level 20 mmol/L (21-32) 19 mmol/L (21-32) Anion Gap 10 (6-14) 12 (6-14) Blood Urea Nitrogen 12 mg/dL (8-26) 10 mg/dL (8-26) Creatinine 0.9 mg/dL (0.7-1.3) 0.9 mg/dL (0.7-1.3) Estimated GFR (Cockcroft-Gault) 79.6 79.6 Glucose Level 84 mg/dL (70-99) 88 mg/dL (70-99) Calcium Level 8.5 mg/dL (8.5-10.1) 8.6 mg/dL (8.5-10.1) Laboratory Tests Test 05/10/19 06:34 Sodium Level 141 mmol/L (136-145) Potassium Level 3.9 mmol/L (3.5-5.1) Chloride Level 110 mmol/L (98-107) Carbon Dioxide Level 19 mmol/L (21-32) Anion Gap 12 (6-14) Blood Urea Nitrogen 10 mg/dL (8-26) Creatinine 0.9 mg/dL (0.7-1.3) Estimated GFR (Cockcroft-Gault) 79.6 Glucose Level 88 mg/dL (70-99) Calcium Level 8.6 mg/dL (8.5-10.1) Medications Current Medications Acetaminophen (Tylenol) 650 mg PRN Q4HRS PRN PO MILD PAIN / TEMP; Start 05/07/19 at 08:00 Aspirin (Ecotrin) 81 mg DAILY PO ; Start 05/07/19 at 09:00; Stop 05/07/19 at 16:30; Status DC Cyclosporine (Restasis) 1 drop BID OU Last administered on 05/09/19at 21:47; Start 05/07/19 at 09:00 Levothyroxine Sodium (Synthroid) 112 mcg DAILY06 PO Last administered on 05/09/19at 05:48; Start 05/07/19 at 06:00 Loperamide HCl (Immodium Oral Susp) 2 mg PRN DAILY PRN PO DIARRHEA; Start 05/07/19 at 04:45 Loteprednol Etabonate (Lotemax) 1 drop DAILY OU ; Start 05/07/19 at 09:00; Stop 05/07/19 at 07:12; Status DC Simvastatin (Zocor) 40 mg HS PO Last administered on 05/08/19at 20:29; Start 05/07/19 at 21:00 Sodium Chloride 1,000 ml @ 75 mls/hr [id number] IV Last administered on 05/10/19at 12:43; Start 05/07/19 at 05:00 Aspirin (Ecotrin) 325 mg DAILYWBKFT PO Last administered on 05/08/19at 10:18; Start 05/07/19 at 16:30; Stop 05/08/19 at 12:59; Status DC Potassium Chloride (Klor-Con) 40 meq 1X ONCE PO Last administered on 05/08/19at 10:18; Start 05/08/19 at 09:00; Stop 05/08/19 at 09:01; Status DC Potassium Chloride (Klor-Con) 20 meq TID PO Last administered on 05/09/19 08:31; Start 05/08/19 at 10:00 Aspirin (Ecotrin) 81 mg DAILYWBKFT PO Last administered on 05/09/19 08:31; Start 05/09/19 at 08:00 Clopidogrel Bisulfate (Plavix) 75 mg DAILYWBKFT PO Last administered on 05/09/19 08:31; Start 05/09/19 at 08:00 Active Scripts Active Reported Imodium A-D (Loperamide Hcl) 1 Mg/7.5 Ml Liquid 2 Mg PO PRN DAILY PRN Milk Of Magnesia (Magnesium Hydroxide) 2,400 Mg/10 Ml Oral.susp 2,400 Mg PO PRN DAILY Donepezil Hcl 5 Mg Tab.rapdis 5 Mg PO HS Lutein 15 Mg Softgel (Lutein Extract/Zeaxanthin Ext) 1 Each Capsule 1 Each PO DAILY Genteal Tears 0.1%-0.3% Drop (Dextran 70/Hypromellose) 15 Ml Drops 15 Ml OP TID Lotemax (Loteprednol Etabonate) 5 Ml Drops.susp 5 Ml OP DAILY Alendronate Sodium 70 Mg Tablet 70 Mg PO WEEKLY Takes on Mondays Omeprazole 20 Mg Capsule.dr 20 Mg PO DAILY Simvastatin 40 Mg Tablet 40 Mg PO HS Glucosamine Chondroitin Caplet (Gluc Bran Dipo Ch/Rodrigue Bran/C/Melvin) 1 Each Tablet 1 Each PO DAILY Hilliards 3 Fish Oil Softgel (Hilliards-3 Fatty Acids/Fish Oil) 1 Each Capsule. 1 Each PO BID Aspir-Low (Aspirin) 81 Mg Tablet. 81 Mg PO DAILY Tylenol (Acetaminophen) 325 Mg Tablet 650 Mg PO Q4HRS Levothyroxine Sodium 112 Mcg Tablet 112 Mcg PO DAILYAC Restasis (Cyclosporine) 1 Each Droperette 1 Each OU BID Vitals/I & O Vital Sign - Last 24 Hours 05/09/19 05/09/19 05/09/19 05/09/19 14:47 19:00 19:45 23:04 Temp 98.0 98.3 97.8 98.0 98.3 97.8 Pulse 55 76 69 Resp 18 20 20 B/P (MAP) 141/78 (99) 170/70 (103) 142/74 (96) Pulse Ox 98 96 97 O2 Delivery Room Air Room Air Room Air Room Air 05/10/19 05/10/19 05/10/19 05/10/19 03:04 07:00 08:05 11:00 Temp 97.5 97.5 97.3 97.5 97.5 97.3 Pulse 71 69 62 Resp 20 17 18 B/P (MAP) 121/67 (85) 154/55 (88) 139/62 (87) Pulse Ox 95 94 98 O2 Delivery Room Air Room Air Room Air Room Air Intake and Output 05/09/19 05/09/19 05/10/19 15:00 23:00 07:00 Intake Total 1000 ml Output Total 250 ml 525 ml Balance 750 ml -525 ml Images Echocardiogram: LEFT VENTRICLE The left ventricle is normal size. There is moderate concentric left ventricular hypertrophy. The left ventricular systolic function is normal. The ejection fraction is 55-60%. There is normal LV segmental wall motion. Transmitral Doppler flow pattern is Grade I-abnormal relaxation pattern. RIGHT VENTRICLE The right ventricle is normal size. There is normal right ventricular wall thickness. The right ventricular systolic function is normal. ATRIA The left atrium size is normal. The right atrium size is normal. The interatrial septum is intact with no evidence for an atrial septal defect or patent foramen ovale as noted on 2-D or Doppler imaging. AORTIC VALVE The aortic valve is normal in structure and function. Doppler and Color Flow revealed no significant aortic regurgitation. There is no significant aortic valvular stenosis. MITRAL VALVE The mitral valve is normal in structure and function. There is no evidence of mitral valve prolapse. There is no mitral valve stenosis. Doppler and Color Flow revealed no mitral valve regurgitation noted. TRICUSPID VALVE The tricuspid valve is not well visualized. Doppler and Color Flow revealed no tricuspid valve regurgitation noted. There is no tricuspid valve stenosis. PULMONIC VALVE The pulmonic valve is not well visualized. Doppler and Color Flow revealed no pulmonic valvular regurgitation. GREAT VESSELS The aortic root is normal in size. The IVC was not visualized. PERICARDIAL EFFUSION There is no evidence of significant pericardial effusion. Critical Notification Critical Value: No <Conclusion> Technically difficult study. Valves not well visualized. The left ventricular systolic function is normal. The ejection fraction is 55-60%. There is normal LV segmental wall motion. Transmitral Doppler flow pattern is Grade I-abnormal relaxation pattern. There is no evidence of significant pericardial effusion. CHRISTIAN MESSINA MD May 10, 2019 13:02
--- NOTE | 2019-05-10 14:58 | PN ---
DATE: 05/10/2019 SUBJECTIVE: The patient is resting, slightly propped up in bed, in no apparent respiratory distress. He is awake, alert; however, he continued to have right-sided hemiplegia. He apparently was seen by speech therapist and he was continued on a regular diet with thin liquid. However, with the change in his neurological status, he is scheduled for another video swallowing evaluation. He was seen by Dr. Monet, who stated that the patient had fluctuation in his neurological status is normal, distal upstroke. PHYSICAL EXAMINATION: GENERAL: When I examined him, he was pale, no jaundice, cyanosis or thyromegaly. No jugular venous distention. No limb edema. VITAL SIGNS: Her heart rate was 71, blood pressure was 121/67, temperature was 97.5, respiratory rate 20 and oxygen saturation was 95%. The rest of clinical examination showed that he definitely has weakness in his right upper extremity, much worse than when I saw him on the first day here. LABORATORY DATA: As of yesterday, showed that his white cell count was 9400, hemoglobin 13, hematocrit 38, MCV 98 and platelet count 217,000. His chemistry showed a serum sodium 141, potassium 3.9, chloride 110, bicarbonate 19, anion gap of 12, BUN 10, creatinine 0.9, estimated GFR was 80 mL per minute. His glucose was 88 and calcium was 8.6. 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 PLAN: To continue aspirin 81 mg once a day and Plavix 75 mg once a day, has had an echocardiogram the result of which is still pending. I would wait for the speech therapist evaluation and we might be able to discharge him either today or tomorrow back to [facility]. JARRED VELA MD DR: ELADIO/galdino JOB#: [id number] / [id number]
[2019-05-10 15:00] VITALS: BP 132/61
[2019-05-10] MEDS: ASPIRIN ENTERIC COATED 81 MG TABLET.DR. PO SCH (15:03)
[2019-05-10] MEDS: CLOPIDOGREL BISULFATE 75 MG TABLET PO SCH (15:03)
[2019-05-10] MEDS ORDERED: CLOP75TA PO (15:04)
[2019-05-10] MEDS: cycloSPORINE 0.05% OPHTH DROPERETTE. OU SCH (15:04)
--- NOTE | 2019-05-10 15:06 | SNU/HH DC ---
DISCHARGE ORDERS DISCHARGE INFORMATION: DISCHARGE DATE: May 10, 2019 FINAL DIAGNOSIS left anterior artery infarct aphasia dysphagia CONDITION ON DISCHARGE: Stable CODE STATUS: Code Status: DNR/DNI MCFP: SNF STAY <30 DAYS: Yes POST DISCHARGE ORDERS: ACTIVITY ORDERS: Resume previous activity WEIGHT BEARING STATUS: As tolerated DIET AFTER DISCHARGE: TREATMENT/EQUIPMENT ORDERS: Physical Therapy For: Evalulation/Treatment Occupational Therapy For: Evaluation/Treatment Speech Language Pathology For: Evaluation/Treatment DISCHARGE MEDICATIONS: Home Meds Active Scripts Clopidogrel Bisulfate (CLOPIDOGREL) 75 Mg Tablet, 1 TAB PO DAILY for tia for 30 Days, #30 TAB 1 Refill Prov:JARRED VELA MD 05/10/19 Reported Medications Loperamide Hcl (IMODIUM A-D) 1 Mg/7.5 Ml Liquid, 2 MG PO PRN DAILY PRN for DIARRHEA, LIQUID 05/07/19 Magnesium Hydroxide (MILK OF MAGNESIA) 2,400 Mg/10 Ml Oral.susp, 2400 MG PO PRN DAILY for constipation, MISC 05/07/19 Donepezil Hcl (DONEPEZIL HCL) 5 Mg Tab.rapdis, 5 MG PO HS for memory support, TAB 05/07/19 Lutein Extract/Zeaxanthin Ext (LUTEIN 15 MG SOFTGEL) 1 Each Capsule, 1 EACH PO DAILY for eye health, CAP 05/07/19 Dextran 70/Hypromellose (Genteal Tears 0.1%-0.3% Drop) 15 Ml Drops, 15 ML OP TID for dry eyes, DROP 05/07/19 Loteprednol Etabonate (LOTEMAX) 5 Ml Drops.susp, 5 ML OP DAILY for conjuctivitis, DROP 05/07/19 Alendronate Sodium (ALENDRONATE SODIUM) 70 Mg Tablet, 70 MG PO WEEKLY for osteoporosis, TAB Takes on Mondays05/07/19 Omeprazole (OMEPRAZOLE) 20 Mg Capsule.dr, 20 MG PO DAILY for GERD, CAP 05/07/19 Simvastatin (SIMVASTATIN) 40 Mg Tablet, 40 MG PO HS for FOR CHOLESTEROL, #30 TAB 0 Refills 05/07/19 Gluc Bran Dipo Ch/Rodrigue Bran/C/Melvin (GLUCOSAMINE CHONDROITIN CAPLET) 1 Each Tablet, 1 EACH PO DAILY for osteoporosis, TAB 05/07/19 Upson-3 Fatty Acids/Fish Oil (OMEGA 3 FISH OIL SOFTGEL) 1 Each Capsule.dr, 1 EACH PO BID for heart health, CAP 05/07/19 Aspirin (ASPIR-LOW) 81 Mg Tablet.dr, 81 MG PO DAILY for hx stroke, TAB.SR 05/07/19 Acetaminophen (TYLENOL) 325 Mg Tablet, 650 MG PO Q4HRS for pain/temp, TAB 05/07/19 Levothyroxine Sodium (LEVOTHYROXINE SODIUM) 112 Mcg Tablet, 112 MCG PO DAILYAC for THYROID SUPPLEMENT, #30 TAB 0 Refills 05/07/19 Cyclosporine (RESTASIS) 1 Each Droperette, 1 EACH OU BID for dry eyes, DROP 05/07/19 JARRED VELA MD May 10, 2019 15:06
[2019-05-10] MEDS ORDERED: FLU VAX QS 2019-20 (36MOS+)/PF 0.5 ML SYRINGE. VAX IM ONE (15:30)
--- NOTE | 2019-05-10 16:24 | NUR ---
SW following pt for dc planning. Chart reviewed and pt is LTC resident at [facility], phone: [phone], fax: [phone]. Orders faxed to [facility] and awaiting on transport time. SW has informed facility pt will need Skilled services. RN to f/u on transport time.
--- NOTE | 2019-05-10 18:52 | NUR ---
Discharge Note: Patient was discharged back [facility]. Patients IV was discontinued per SYSTEM DESIGNER. Patient and family agreeable with discharge plans. Report was called to DESMOND Beltre at [facility] via phone. Patient was taken via wheelchair van provided by facility with all personal belongings. Patients daughter Lili was made aware of patient leaving to [facility]. All stroke information provided to family and facility.
--- NOTE | 2019-05-10 19:39 | DS ---
DATE OF DISCHARGE: 05/10/2019 HOSPITAL COURSE: The patient is an 88-year-old male patient who was admitted at this time here from [facility] Emergency Room where he presented with new onset right-sided weakness, slurring of speech and decreased communication. He has increased generalized weakness compared to what he was seen before and had a CT scan of the head, which showed hypodensity in the white matter on the left frontal lobe, new comparative study done in 2018 and this may represent an area of subacute or chronic ischemia. Therefore, he had had an MRI done, which basically showed acute infarct involving the medial left frontal lobe with involvement of the cingulate gyrus and body of the corpus callosum, findings are within the region of the left anterior cerebral artery territory. There is ____ cytotoxic edema without significant midline shift. No acute ____. He has Doppler ultrasound, which showed that he has 50%-69% stenosis involving the right internal carotid artery secondary to calcified plaque at the right carotid bifurcation. There is no significant stenosis of the proximal left cervical internal carotid artery with mild plaque at the left carotid bifurcation. Antegrade flow is identified in both vertebral arteries. He was seen in consultation by Dr. Hale as well as the speech and language pathologist and he is now on a pureed diet with nectar thickened liquid and the decision was made to discharge him back to [facility] to continue the process of physical and occupational therapy. PHYSICAL EXAMINATION: GENERAL: When I saw him today, he was resting slightly propped up in bed, in no apparent respiratory distress, slightly pale, but no jaundice, cyanosis or thyromegaly. No jugular venous distention. No limb edema. VITAL SIGNS: His heart rate was 62, blood pressure 139/62, temperature was 97.3, respiratory rate was 18 and oxygen saturation was 98%. HEAD, EYES, EARS, NOSE AND THROAT: Normocephalic, atraumatic. NECK: Supple. HEART: Showed normal first and second heart sounds. No gallop or murmur. CHEST: Clear to auscultation. No crepitation or rhonchi. ABDOMEN: Distended, soft, nontender. NEUROLOGIC: He is awake, alert, does have some expressive aphasia. He does have definitely mild weakness of his right upper and right lower extremity. His intake over the last 24 hours and output were incompletely recorded. LABORATORY DATA: As of this morning showed a serum sodium 141, potassium 3.9, chloride 110, bicarbonate 19, anion gap of 12, BUN 10, creatinine 0.9, estimated GFR was 79 mL per minute. His glucose was 88, calcium was 8.5. DISCHARGE MEDICATIONS: He was discharged back to [facility] to continue on Plavix 75 mg once a day, aspirin 81 mg once a day, Tylenol 650 mg every 4 hours, alendronate sodium 70 mg weekly, Restasis 1 drop to both eyes twice a day. He is on artificial tears 1 drop to both eyes 3 times a day, Aricept 5 mg at bedtime. He is on levothyroxine sodium 112 mcg once a day, loperamide 2 mg daily as needed for diarrhea, Lotemax 5 mL eye drops daily for conjunctivitis, Lutein 50 mg softgel one daily, magnesium hydroxide for milk of magnesia 30 mL p.o. daily p.r.n. for constipation, omega-3 fatty acids 1 capsule twice a day, omeprazole 20 mg daily, simvastatin 40 mg at bedtime. FINAL DISCHARGE DIAGNOSES: 1. 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 2. Right internal carotid artery bifurcation, stenosis of 50%-69%. 3. Coronary artery disease, hypertension, hyperlipidemia, hypothyroidism. Plan is to continue with aspirin and Plavix. Continue with all other medications. We will start the process of physical and occupational therapy as well as speech therapy. JARRED VELA MD DR: ELADIO/galdino JOB#: [id number] / [id number]
== END 2019-05-10 18:57 | disposition home or self-care (01) | DRG 64 ==
LOC: 6 SOUTH 05-07 01:53 → 5 SOUTH 05-07 16:16
PROVIDERS: ADMIT Internal Medicine; ATTEND Internal Medicine
DX: I63.9 Cerebral infarction, unspecified (principal); G93.41 Metabolic encephalopathy; G81.91 Hemiplegia, unspecified affecting right dominant side; R47.01 Aphasia; F32.9 Major depressive disorder, single episode, unspecified; K21.9 Gastro-esophageal reflux disease without esophagitis; I25.10 Atherosclerotic heart disease of native coronary artery without angina pectoris; E78.00 Pure hypercholesterolemia, unspecified; E03.9 Hypothyroidism, unspecified; N40.0 Benign prostatic hyperplasia without lower urinary tract symptoms; I10 Essential (primary) hypertension; G89.4 Chronic pain syndrome; M81.0 Age-related osteoporosis without current pathological fracture; E78.5 Hyperlipidemia, unspecified; I65.21 Occlusion and stenosis of right carotid artery; H40.9 Unspecified glaucoma; H35.30 Unspecified macular degeneration; M15.9 Polyosteoarthritis, unspecified; Z98.41 Cataract extraction status, right eye; Z98.42 Cataract extraction status, left eye; Z88.0 Allergy status to penicillin; Z88.8 Allergy status to other drugs, medicaments and biological substances; Z79.82 Long term (current) use of aspirin; Z87.440 Personal history of urinary (tract) infections
CPT/HCPCS: 36415; 70551; 80048; 80061; 82607; 84443; 85027; 90471; 90686; 93306; 93880; J7030; 92526; 92610; 97110; 97116; 97530; 97535; G0378

== ENCOUNTER 2020-08-23 14:13 | Inpatient (IN) | payer MEDICARE, BC, MEDICAID ==
[~2020-08-23] VITALS: Ht 180.3 cm; Wt 68.5 kg
[~2020-08-23 14:13] MED LIST: ACET325T9 PO; ALEN70TA71 PO; ASPI81TA50 PO; CLOP75TA PO; CYCL1DRO OU; DEXT15DR16 OP; DONE5TAB14 PO; GLUC-9 PO; LEVO112T49 PO; LOPE1LIQ7 PO; LOTE5DRO2 OP; LUTE1CAP3 PO; MAGN24003 PO; OMEG1CAP38 PO; OMEP20CA16 PO; SIMV40TA18 PO
[2020-08-23 15:00] VITALS: BP 129/47
[2020-08-23 16:42] LABS: BASO # 0.1 x10^3/uL (0.0-0.2); BASO % 1 % (0-3); EOS # 0.5 x10^3/uL (0.0-0.7); EOS % 4 % (0-3); HEMATOCRIT 42.7 % (39.0-53.0); HEMOGLOBIN 14.2 g/dL (13.0-17.5); LYMPH # 2.4 x10^3/uL (1.0-4.8); LYMPH % 24 % (24-48); MEAN CORPUSCULAR HEMOGLOBIN 32 pg (25-35); MEAN CORPUSCULAR HGB CONC 33 g/dL (31-37); MEAN CORPUSCULAR VOLUME 97 fL (79-100); MONO % 10 % (0-9); NEUT # 6.3 x10^3/uL (1.8-7.7); NEUT % 61 % (31-73); PLATELET COUNT 315 x10^3/uL (140-400); RED BLOOD COUNT 4.39 x10^6/uL (4.30-5.70); RED CELL DISTRIBUTION WIDTH 13.8 % (11.5-14.5); WHITE BLOOD COUNT 10.3 x10^3/uL (4.0-11.0)
[2020-08-23 16:52] LABS: ALBUMIN/GLOBULIN RATIO 0.8 (1.0-1.7); CALCIUM 9.2 mg/dL (8.5-10.1); CREATININE 1.1 mg/dL (0.7-1.3); TOTAL BILIRUBIN 0.7 mg/dL (0.2-1.0); TOTAL PROTEIN 6.9 g/dL (6.4-8.2)
[2020-08-23 16:55] LABS: PROTHROMBIN TIME PATIENT 13.3 SEC (11.7-14.0)
[2020-08-23] MEDS ORDERED: MAGNESIUM HYDROXIDE 2,400 MG/30 ML ORAL.SUSP. PO PRN (18:45)
[2020-08-23 19:00] VITALS: BP 136/59
[2020-08-23] MEDS ORDERED: ACETAMINOPHEN 325 MG TABLET. PO PRN (20:00)
[2020-08-23] MEDS: cycloSPORINE 0.05% OPHTH DROPERETTE. OU SCH (20:56)
[2020-08-23] MEDS: LACTOBACILLUS RHAMNOSUS GG 1 CAPSULE. PO SCH (20:56)
[2020-08-23] MEDS: POLYVINYL ALCOHOL 1.4% OPHTH SOLUTION 15ML BOTTLE. OU SCH (20:56)
[2020-08-23] MEDS: DICLOFENAC SODIUM 1% TOPICAL GEL 100GM TUBE. TP SCH (20:57)
[2020-08-23] MEDS: SIMVASTATIN 40 MG TABLET. PO SCH (20:57)
[2020-08-23] MEDS: OMEGA-3 FATTY ACIDS/FISH OIL 1,000 MG CAPSULE. PO SCH (20:57)
[2020-08-23] MEDS: DOXYCYCLINE HYCLATE 100 MG TABLET PO SCH (20:57)
[2020-08-23 23:00] VITALS: BP 126/57
[2020-08-24 02:44] VITALS: BP 147/73
[2020-08-24] MEDS: LEVOTHYROXINE 88 MCG TABLET PO SCH (06:00)
[2020-08-24 07:00] VITALS: BP 111/42
[2020-08-24] MEDS: PANTOPRAZOLE 40 MG TABLET.DR. PO SCH (07:05)
[2020-08-24] MEDS: CLOPIDOGREL BISULFATE 75 MG TABLET PO SCH (07:05)
[2020-08-24] MEDS: LACTOBACILLUS RHAMNOSUS GG 1 CAPSULE. PO SCH ×2 (07:05→20:01)
[2020-08-24] MEDS: OMEGA-3 FATTY ACIDS/FISH OIL 1,000 MG CAPSULE. PO SCH ×2 (07:05→20:01)
[2020-08-24] MEDS: CHOLECALCIFEROL (VITAMIN D3) 1,000 UNIT TABLET PO SCH (07:06)
[2020-08-24] MEDS: DOXYCYCLINE HYCLATE 100 MG TABLET PO SCH ×2 (07:06→20:01)
[2020-08-24] MEDS: MULTIVITAMIN with MINERAL TABLET. PO SCH (07:06)
[2020-08-24] MEDS ORDERED: LOTEPREDNOL ETABONATE OP SCH (09:00)
[2020-08-24] MEDS ORDERED: [UNRECOGNIZED DRUG - OTHER] PO SCH (09:00)
[2020-08-24 09:08] LABS: CHOLESTEROL/HDL RATIO 2.4
[2020-08-24] MEDS: POLYVINYL ALCOHOL 1.4% OPHTH SOLUTION 15ML BOTTLE. OU SCH ×3 (09:10→20:00)
[2020-08-24] MEDS: cycloSPORINE 0.05% OPHTH DROPERETTE. OU SCH ×2 (09:10→19:56)
[2020-08-24] MEDS: DICLOFENAC SODIUM 1% TOPICAL GEL 100GM TUBE. TP SCH ×3 (09:10→20:01)
--- NOTE | 2020-08-24 09:38 | NUR ---
GRETCHEN following. Discussed with RN. GRETCHEN attempted to contact [facility] to determine if pt is LTC or SNF. Line busy, unable to leave voicemail. Pt on room air, soft mechanical diet, Rapid COVID-[address] Vogt being consulted. GRETCHEN will continue to follow. Addendum: 08/24/20 at 1343 by NICHOLE GODINEZ GRETCHEN spoke with Dea at [facility], pt is a [facility] care resident.
[2020-08-24 11:00] VITALS: BP 144/66
--- NOTE | 2020-08-24 12:27 | HP ---
ADMIT DATE: HISTORY OF PRESENT ILLNESS: The patient is an 89-year-old male patient, a resident at [facility], who was noted by the nursing staff there to go to have a swollen, erythematous right foot. Pain was most initially on his right heel. Before I saw him and by description of nursing staff, I started him on doxycycline and all his lab work was within acceptable range. In particular, he has no leukocytosis. We did start him on doxycycline 100 mg twice a day as his lab work including sed rate, CRP, and uric acid are all within normal limit. However, when I saw him, his right foot was red, very cool to touch and both the dorsalis pedis and tibialis posterior were absent and had also some blisters on the dorsum of his right foot and therefore, I arranged for him to have arterial Doppler ultrasound, which showed that the patient has more than 90% stenosis of the right thigh superficial femoral artery with severe distal disease below knee and some flow reconstituted. He has severe left leg below-knee disease with flow via anterior tibial artery only and therefore, I arranged for him to be admitted directly to [facility] to consult the vascular surgeon. The patient normally is able to walk with a walker without difficulty; however, now he is complaining of pain and difficulty walking. PAST MEDICAL HISTORY: Significant for cervical spinal stenosis, generalized osteoarthritis, dizziness and lightheadedness, gastroesophageal reflux disease, coronary artery disease, chronic constipation, hypercholesterolemia, hypothyroidism, actinic keratosis, angina pectoris, benign prostatic hypertrophy, recurrent urinary tract infection. He is also known to have hypertension, chronic pain syndrome, depressive disorder, keratoconjunctivitis sicca and glaucoma as well as macular degeneration, osteoporosis without pathological fracture, and amnesia. He had had an acute infarct involving the medial left frontal lobe with involvement of the cingulate gyrus and body of the corpus callosum and right internal carotid artery bifurcation stenosis of 50-69%. PAST SURGICAL HISTORY: Significant for right knee surgery, partial thyroidectomy and bilateral cataract extraction. ALLERGIES: HE IS ALLERGIC TO AMOXICILLIN, HEPARIN, AND IBUPROFEN. MEDICATIONS: He is currently on the following medications: Aricept 5 mg at bedtime, Plavix 75 mg once a day, simvastatin 40 mg at bedtime, omega-3 fatty acid fish oil 1 capsule twice a day, aspirin 81 mg once a day, acetaminophen 650 mg every 4 hours. He is on Lotemax 5 mL both eyes daily, cyclosporine for Restasis 1 drop to both eyes b.i.d. He is on artificial tears, 1 drop to both eyes 3 times a day and loperamide 2 mg daily as needed for diarrhea. He has magnesium hydroxide for milk of magnesia 30 mL p.o. daily p.r.n. for constipation, omeprazole 20 mg once a day for gastroesophageal reflux disease. He is on levothyroxine sodium 112 mcg once a day, alendronate sodium 70 mg weekly. He is on glucosamine chondroitin sulfate 1 tablet once a day, and lutein extract 15 mg soft gel 1 tablet daily. FAMILY HISTORY: Noncontributory. SOCIAL HISTORY: He is . His recently. He is currently a resident at [facility]. He apparently does not smoke, drink alcohol or use any recreational drugs. 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 REVIEW OF SYSTEMS: As per history of present illness. PHYSICAL EXAMINATION: GENERAL: When I saw him, he looked well and was clearly in no apparent respiratory distress. No pallor, jaundice, cyanosis or thyromegaly. No jugular venous distention. No limb edema. VITAL SIGNS: Her heart rate was 90, blood pressure was 136/59, temperature was 99, respiratory rate was 18, and oxygen saturation was 92%. HEAD, EYES, EARS, NOSE AND THROAT: Normocephalic, atraumatic. NECK: Supple. HEART: Showed normal first and second heart sounds. No gallop or murmur. CHEST: Clear to auscultation. No crepitation or rhonchi. ABDOMEN: Distended, soft, nontender. NEUROLOGIC: He is demented, but without any obvious lateralizing sign. All his cranial nerves are intact. EXTREMITIES: He moves extremities without difficulty. He is normally ambulatory with a walker; however, recently he is now complaining of severe pain in his right foot, which is very dusky red with very sensitive to touch and cold to touch with absent dorsalis posterior and dorsalis pedis and tibialis posterior. LABORATORY DATA: Showed a white cell count of 10,300; hemoglobin 14; hematocrit 42; MCV 97; and platelet count 315,000 with normal manual differential. His chemistry showed a serum sodium 139, potassium 4, chloride 103, bicarbonate 27, anion gap of 9, BUN 15, creatinine 1.1. Estimated GFR was 63 mL per minute. His glucose was 100, calcium was 9.2. Total bilirubin, AST, ALT, alkaline phosphatase were normal. Total protein 6.9, albumin 3. Serum triglycerides were 89, total cholesterol 115, LDL was 50, VLDL was 18, and HDL was 47. The ratio was 2.4. His prothrombin time, INR and aPTT are all normal and his SARS COVID-19 antigen rapid test was negative. The arterial Doppler ultrasound done at [facility] showed that the patient has more than 90% stenosis of the right thigh superficial femoral artery with severe distal disease below the knee with some fluid reconstituted. He has also severe left leg below-knee disease with flow via anterior tibial artery only. I reconciled all his medication and consulted the vascular surgeon for evaluation and treatment. JARRED VELA MD DR: ELADIO/galdino JOB#: [id number] / [id number]
[2020-08-24 15:00] VITALS: BP 118/49
--- NOTE | 2020-08-24 17:00 | PDOC ---
Provider Note Date of Service: DATE: 08/24/20 TIME: 16:57 Provider Note (Please see full dictation) 89 yo male with DM presents with right heel pain. He has an ulcer/eschar at the distal right 5th toe and fissure on the right heel. He had US showing high grade stenosis of the right SFA with poor tibial artery flow at an outside facility. I discussed findings with him and his daughter at the bedside. He has severe peripheral artery disease with right heel pain and heel and toe ulcer. He would likely benefit from angiogram and possible intervention. I discussed risks and benefits. He and his daughter acknowledged and elected to proceed. Justifications for Admission Other Justification JANETH PERLA MD Aug 24, 2020 17:00
[2020-08-24 19:20] VITALS: BP 141/69
[2020-08-24] MEDS: HYDROcodone/APAP 5/325MG 1 TAB TABLET PO PRN (20:01)
[2020-08-24] MEDS: SIMVASTATIN 40 MG TABLET. PO SCH (20:01)
[2020-08-24] MEDS: IV NORMAL SALINE 1000ML BAG 1,000 ML IV SCH (20:02)
--- NOTE | 2020-08-24 21:12 | CONS ---
DATE OF CONSULTATION: 08/24/2020 CHIEF COMPLAINT: Right foot pain. HISTORY OF PRESENT ILLNESS: The patient is an 89-year-old male with dementia, osteoarthritis, gastroesophageal reflux disease and previous stroke, who presents with significant right heel pain. He was noted to have areas of skin breakdown on the distal right fifth toe and heel. An ultrasound was performed at his facility that demonstrated narrowing of his right superficial femoral artery with occlusion or severely limited flow in tibial vessels. He is admitted for further evaluation. He denies any chest pain or shortness of breath. He has a remote history of stroke, but no recent unilateral weakness/numbness, vision loss, speech changes or other lateralizing TIA or stroke symptoms. His daughter is at the bedside and assisted with the history. PAST MEDICAL HISTORY: 1. Coronary artery disease. 2. Hypercholesterolemia. 3. Hypertension. 4. Gastroesophageal reflux disease. 5. Previous stroke. 6. Dementia. 7. Osteoarthritis. PAST SURGICAL HISTORY: 1. Prostatectomy. 2. Thyroidectomy. 3. Cataract surgery. 4. Right total knee arthroplasty. ALLERGIES: ADVERSE REACTION TO AMOXICILLIN, HEPARIN AND IBUPROFEN. CURRENT MEDICATIONS: Aricept, Plavix, simvastatin, omega-3 fatty acids, aspirin, acetaminophen, Restasis, levothyroxine, alendronate, glucosamine/chondroitin. FAMILY HISTORY: Noncontributory. SOCIAL HISTORY: He denies any smoking or alcohol use. He is . REVIEW OF SYSTEMS: No recent fevers, chills, chest pain or shortness of breath. He has some confusion. He is oriented to person and place, but is not oriented to time. He was oriented to reason for coming into the hospital. He has a previous history of stroke for which he was evaluated a year ago. He denies any recent unilateral weakness/numbness, vision loss, speech changes or other lateralizing TIA or stroke symptoms. No abdominal or back pain. He has leg pain and areas of skin breakdown as detailed above. PHYSICAL EXAMINATION: GENERAL: This is a well-developed male, in no acute distress. He has some generalized confusion. VITAL SIGNS: Temperature 97.8, pulse 79, blood pressure 118/49, respirations 16. NECK: Supple. No lymphadenopathy. CARDIOVASCULAR: Regular rhythm. ABDOMEN: Soft, nontender, nondistended. No palpable masses. EXTREMITIES: He has palpable radial and femoral pulses bilaterally. He has palpable right popliteal pulse, but left popliteal and pedal pulses are nonpalpable. He has no areas of skin breakdown on the left lower leg or foot. He has a fissure on his right plantar heel with early eschar. He also has an ulcer at the distal aspect of the right fifth toe that is dry, consistent with an early eschar. No surrounding erythema or active fluctuance at this time. LABORATORIES: Significant for white blood cell 10.3, hemoglobin 14.2, platelet count of 315. INR 1.1, PTT 31. Sodium 139, potassium 4.0, BUN 15, creatinine 1.1, glucose 100. LDL 50. IMAGING STUDIES: Outside ultrasound as detailed above. The report suggests high-grade stenosis of the mid right superficial femoral artery with very poor flow or occlusion of the tibial vessels bilaterally. IMPRESSION: 1. Right heel pain and areas of skin breakdown including fissure and distal toe ulcer, consistent with severe peripheral arterial disease. 2. Dementia. 3. Hypertension. 4. Hyperlipidemia. RECOMMENDATIONS: 1. I discussed the findings of the ultrasound with him and his daughter at the bedside. We would continue protective measures to both feet. We will get a Rooke boot to the right foot to help prevent pressure and keep warm while in the hospital. 2. Would likely benefit from further evaluation if we are going to help with rest pain and healing. We would recommend an angiogram with possible percutaneous intervention. I discussed risks and benefits with him. Risks include but not limited to bleeding, infection, nerve injury, contrast reaction (allergy or nephropathy, cardiac/pulmonary complications and ). He acknowledged and requested to proceed. He has a reported heparin allergy. It is unclear if this is due to heparin-induced thrombocytopenia or previous bleeding. He may need other anticoagulation due to potential heparin allergy. He and his daughter acknowledged and requested to proceed. We will schedule with Interventional Radiology tomorrow. JANETH PERLA MD DR: LES/galdino JOB#: [id number] / [id number] JARRED Yang MD
[2020-08-24 23:12] VITALS: BP 116/49
[2020-08-25 03:06] VITALS: BP 125/39
[2020-08-25] MEDS: LEVOTHYROXINE 88 MCG TABLET PO SCH (05:59)
[2020-08-25] MEDS: PANTOPRAZOLE 40 MG TABLET.DR. PO SCH (05:59)
[2020-08-25] MEDS: IV NORMAL SALINE 1000ML BAG 1,000 ML IV SCH ×2 (06:27→20:29)
[2020-08-25 07:00] VITALS: BP 126/50
[2020-08-25] MEDS: LACTOBACILLUS RHAMNOSUS GG 1 CAPSULE. PO SCH ×2 (07:01→20:27)
[2020-08-25] MEDS: MULTIVITAMIN with MINERAL TABLET. PO SCH (07:04)
[2020-08-25] MEDS: DOXYCYCLINE HYCLATE 100 MG TABLET PO SCH ×2 (07:04→20:27)
[2020-08-25] MEDS: CLOPIDOGREL BISULFATE 75 MG TABLET PO SCH (07:04)
[2020-08-25] MEDS: OMEGA-3 FATTY ACIDS/FISH OIL 1,000 MG CAPSULE. PO SCH ×2 (07:04→20:27)
[2020-08-25] MEDS: CHOLECALCIFEROL (VITAMIN D3) 1,000 UNIT TABLET PO SCH (07:04)
[2020-08-25 07:13] LABS: CALCIUM 8.2 mg/dL (8.5-10.1); CREATININE 0.9 mg/dL (0.7-1.3); GFR 79.5; POTASSIUM 3.8 mmol/L (3.5-5.1)
[2020-08-25] MEDS ORDERED: IOHEXOL 350 MG/ML 100 ML VIAL. IV ONE (08:30)
[2020-08-25] MEDS: MORPHINE SULFATE 4 MG/ML VIAL. IV PRN ×3 (08:36→22:51)
[2020-08-25] MEDS: cycloSPORINE 0.05% OPHTH DROPERETTE. OU SCH ×2 (08:39→20:26)
[2020-08-25] MEDS: DICLOFENAC SODIUM 1% TOPICAL GEL 100GM TUBE. TP SCH ×3 (08:39→20:26)
[2020-08-25] MEDS: POLYVINYL ALCOHOL 1.4% OPHTH SOLUTION 15ML BOTTLE. OU SCH ×3 (08:39→20:26)
[2020-08-25] MEDS ORDERED: CONTRAST GIVEN. MC PRN (08:45)
[2020-08-25] MEDS: HYDROcodone/APAP 5/325MG 1 TAB TABLET PO PRN ×2 (09:25→20:27)
--- NOTE | 2020-08-25 09:50 | NUR ---
SW following. Discussed with RN, pt from [facility], room air, NPO, COVID-19 negative. Pt had a procedure done today. Awaiting further plan of care. SW will continue to follow.
[2020-08-25 10:50] VITALS: BP 111/63
--- NOTE | 2020-08-25 11:11 | PN ---
DATE: 08/25/2020 SUBJECTIVE: The patient was admitted with severe pain in his right foot and also was found to have severe stenosis of his right superficial femoral artery with poor flow and we did consult the vascular surgeon and the plan was for him to undergo aortogram with possible intervention. Unfortunately, the patient was fed this morning and therefore, the procedure will be done on Friday, although apparently he has had a CT angio, the result of which is still pending at the time of this dictation. On questioning him, he continues to complain of pain in his right foot, but denied any other complaint. PHYSICAL EXAMINATION: GENERAL: When I examined him, he was somewhat pale, but no jaundice, cyanosis or thyromegaly. No jugular venous distention. No limb edema. VITAL SIGNS: His heart rate was 64, blood pressure was 126/50, temperature was 98.4, respiratory rate was 18 and oxygen saturation was 93% on room air. HEAD, EYES, EARS, NOSE AND THROAT: Showed normocephalic, atraumatic. NECK: Supple. HEART: Showed normal first and second heart sounds. No gallop or murmur. CHEST: Clear to auscultation. No crepitation or rhonchi. ABDOMEN: Soft, nontender. NEUROLOGIC: He is demented, but without any obvious lateralizing sign. His intake over the last 24 hours was 420, output was 300. LABORATORY DATA: His chemistry this morning showed a serum sodium 140, potassium 3.8, chloride 107, bicarbonate 23, anion gap of 10, BUN 13, creatinine 0.9, estimated GFR was 79 mL per minute. His glucose 82, calcium was 8.2. ASSESSMENT: Severe peripheral vascular disease with right heel pain and areas of skin breakdown including fissure and distal toe ulcer consistent with severe peripheral arterial disease. Other medical problems include hypertension, hyperlipidemia, hypothyroidism and dementia. PLAN: To obviously continue with pain management. I will start him on heparin for DVT prophylaxis, for now I will hold the heparin on Friday night. JARRED VEAL MD DR: ELADIO/galdino JOB#: [id number] / [id number]
[2020-08-25 14:43] VITALS: BP 130/63
--- NOTE | 2020-08-25 15:19 | RAD ---
CTA of the abdomen and pelvis with bilateral lower extremity runoffs, no comparison, for peripheral v ascular disease, foot wound. TECHNIQUE: Contiguous axial CT images are obtained through the abdomen and pelvis and both lower extr emities following administration of IV contrast in the arterial phase. Sagittal and coronal MIPS are evaluated along with 3-D volume rendered images of the vasculature. Nonvascular findings: There is atelectasis in the lung bases. Small right pleural effusion is noted. There is a benign bone island in the left femoral neck. Degenerative changes are seen throughout the spine, and bilateral knees. Changes of antecedent granulomatous disease are seen throughout the splee n. Evaluation of solid organ parenchyma is limited by arterial phase of contrast administration, perkins yesi there are no gross morphologic abnormalities of the pancreas, liver, or bilateral adrenal glands. Horseshoe kidney is present with no hydronephrosis or suspicious masses. There is diffuse cortical t hinning bilaterally. There is a third portion duodenal diverticulum. No suspicious lymphadenopathy is seen. No free or loculated fluid collection are evident. Urinary bladder is fluid distended and nette sly unremarkable. Postsurgical changes are seen throughout the pelvis. Evaluation of large and small bowel is limited by lack of enteric contrast, however there are no areas of gross bowel dilatation ar e all wall thickening identified. The appendix is not seen. There is a Hernandez's cyst on the left. Mychal gn central mesenteric calcification. Gallbladder with small gallstones. Vascular findings: Moderate multifocal atherosclerosis in virtually all vascular distributions, inclu ding bulky calcified atherosclerosis of the right proximal renal artery likely producing high-grade r enal artery stenosis. The left renal artery is gracile relative to the right, but appears patent. Sameer ateral iliac arteries are patent, with moderate to severe stenosis of the bilateral internal iliac ar teries at the ostium. There is bulky calcified and soft plaque involving the common femoral arteries bilaterally, resulting in roughly 50-60 percent stenosis in each of these vessels. No aneurysms are i dentified. On the right, the superficial femoral artery is patent with extensive multifocal disease a nd several tandem severe stenoses. There is occlusion of the popliteal artery at the level of the audrey nt, with recanalization of 3 runoff vessels of the mid calf. On the left, findings are similar with m oderate multifocal atherosclerosis of the left SFA and several tandem moderate stenoses. The poplitea l artery remains patent to the trifurcation, though there are a few tandem moderate to severe stenose s of this vessel is well. At the trifurcation, the anterior and posterior tibial arteries appear occl uded proximally but rapidly reconstituted, and there appears to be three-vessel runoff at the level t he ankle, though evaluation of the vessels of the mid calf is limited. IMPRESSION: 1. Severe multifocal bilateral SFA and popliteal disease as described above. There is also likely pro ximal runoff vessel stenosis, though it appears the runoff vessels reconstitute at the mid to distal calf. 2. Severe stenosis the right renal artery which is the dominant artery for this portion kidney. 3. Small right pleural effusion. 4. 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 5. Cholelithiasis without CT evidence of acute cholecystitis. 6. Left Hernandez's cyst. 7. Other chronic changes as described. PQRS Compliance Statement: One or more of the following individualized dose reduction techniques were utilized for this examinat ion: 1. Automated exposure control 2. Adjustment of the mA and/or kV according to patient size 3. Use of iterative reconstruction technique Electronically signed by: Wm Romano MD (08/25/2020 3:17 PM) [id number]
[2020-08-25] MEDS ORDERED: ENOXAPARIN 30 MG/0.3 ML SYRINGE. SQ SCH (15:30)
[2020-08-25] MEDS: ENOXAPARIN 40 MG/0.4 ML SYRINGE. SQ SCH (16:21)
[2020-08-25 19:30] VITALS: BP 116/52
[2020-08-25] MEDS: SIMVASTATIN 40 MG TABLET. PO SCH (20:26)
[2020-08-25 22:33] VITALS: BP 139/59
[2020-08-26] MEDS: MORPHINE SULFATE 4 MG/ML VIAL. IV PRN ×3 (03:45→18:02)
[2020-08-26 03:55] VITALS: BP 157/66
[2020-08-26] MEDS: HYDROcodone/APAP 5/325MG 1 TAB TABLET PO PRN ×2 (05:59→19:47)
[2020-08-26] MEDS: PANTOPRAZOLE 40 MG TABLET.DR. PO SCH (05:59)
[2020-08-26] MEDS: LEVOTHYROXINE 88 MCG TABLET PO SCH (05:59)
[2020-08-26 07:00] VITALS: BP 122/47
[2020-08-26] MEDS: LACTOBACILLUS RHAMNOSUS GG 1 CAPSULE. PO SCH ×2 (08:32→19:46)
[2020-08-26] MEDS: CHOLECALCIFEROL (VITAMIN D3) 1,000 UNIT TABLET PO SCH (08:33)
[2020-08-26] MEDS: cycloSPORINE 0.05% OPHTH DROPERETTE. OU SCH ×2 (08:33→19:46)
[2020-08-26] MEDS: OMEGA-3 FATTY ACIDS/FISH OIL 1,000 MG CAPSULE. PO SCH ×2 (08:33→19:46)
[2020-08-26] MEDS: DICLOFENAC SODIUM 1% TOPICAL GEL 100GM TUBE. TP SCH ×3 (08:33→19:46)
[2020-08-26] MEDS: CLOPIDOGREL BISULFATE 75 MG TABLET PO SCH (08:33)
[2020-08-26] MEDS: DOXYCYCLINE HYCLATE 100 MG TABLET PO SCH ×2 (08:33→19:46)
[2020-08-26] MEDS: POLYVINYL ALCOHOL 1.4% OPHTH SOLUTION 15ML BOTTLE. OU SCH ×3 (08:33→19:45)
[2020-08-26] MEDS: IV NORMAL SALINE 1000ML BAG 1,000 ML IV SCH ×2 (08:34→21:50)
[2020-08-26] MEDS: MULTIVITAMIN with MINERAL TABLET. PO SCH (08:34)
[2020-08-26 08:38] LABS: HEMATOCRIT 36.1 % (39.0-53.0); HEMOGLOBIN 12.2 g/dL (13.0-17.5); RED BLOOD COUNT 3.74 x10^6/uL (4.30-5.70); RED CELL DISTRIBUTION WIDTH 13.4 % (11.5-14.5); WHITE BLOOD COUNT 9.6 x10^3/uL (4.0-11.0)
[2020-08-26 08:59] LABS: ALBUMIN 2.3 g/dL (3.4-5.0); ALBUMIN/GLOBULIN RATIO 0.7 (1.0-1.7); CREATININE 0.9 mg/dL (0.7-1.3); GFR 79.5; POTASSIUM 3.8 mmol/L (3.5-5.1); TOTAL BILIRUBIN 0.7 mg/dL (0.2-1.0); TOTAL PROTEIN 5.4 g/dL (6.4-8.2)
--- NOTE | 2020-08-26 09:43 | PN ---
DATE: 08/26/2020 SUBJECTIVE: The patient is resting, slightly propped up in bed, sleeping comfortably, in no apparent distress. On questioning him, he denied any complaint. In particular, he denied any pain in his right foot. The nursing staff did not voice any concern and stated that he has an uneventful night. PHYSICAL EXAMINATION: GENERAL: When I examined him, he looked well and was clearly in no apparent respiratory distress. No pallor, jaundice, cyanosis or thyromegaly. No jugular venous distention. No lower limb edema. VITAL SIGNS: His heart rate was 76, blood pressure was 157/66, temperature was 98, respiratory rate was 14 and oxygen saturation was 92% on room air. HEAD, EYES, EARS, NOSE, AND THROAT: Showed normocephalic, atraumatic. NECK: Supple. HEART: Normal first and second heart sounds. No gallop or murmur. CHEST: Clear to auscultation. No crepitation or rhonchi. ABDOMEN: Distended, soft, nontender. NEUROLOGIC: He was demented, but without any obvious lateralizing sign. EXTREMITIES: His right foot is cool to touch and he has right heel pain in the area of skin breakdown including facial and distal toe ulcer consistent with severe peripheral arterial disease. LABORATORY DATA: Today's labs are still pending at the time of this dictation. His coronavirus PCR was not detectable and his aorta with runoff CT angio showed that the patient has severe multifocal bilateral superficial femoral artery and popliteal artery disease. There is also likely proximal runoff vessel stenosis, though it appears that the runoff at the mid to distal calf. He has severe stenosis of the right renal artery, which is the dominant artery for this kidney. He has small right sided pleural effusion, horseshoe kidney with no evidence of malignancy, cholelithiasis without CT evidence of acute cholecystitis and has left Hernandez's cyst. ASSESSMENT: 1. Severe peripheral vascular disease with right heel pain and areas of skin breakdown consistent with severe peripheral arterial disease. The CT angio is consistent with severe peripheral arterial disease. 2. Other medical problems include hypertension, hyperlipidemia, hypothyroidism and dementia. PLAN: To continue on pain management. I did start him on a low dose of Lovenox 40 mg subcutaneous once a day for Friday, Friday, Friday. He should be n.p.o. on Malachi night. JARRED VELA MD DR: ELADIO/galdino JOB#: [id number] / [id number]
[2020-08-26 11:00] VITALS: BP 122/44
[2020-08-26 15:00] VITALS: BP 118/45
[2020-08-26] MEDS: ENOXAPARIN 40 MG/0.4 ML SYRINGE. SQ SCH (16:14)
[2020-08-26 19:00] VITALS: BP 146/68
[2020-08-26] MEDS: SIMVASTATIN 40 MG TABLET. PO SCH (19:46)
[2020-08-26 23:00] VITALS: BP 125/55
[2020-08-27 03:00] VITALS: BP 146/63
[2020-08-27] MEDS: PANTOPRAZOLE 40 MG TABLET.DR. PO SCH (05:51)
[2020-08-27] MEDS: LEVOTHYROXINE 88 MCG TABLET PO SCH (05:51)
[2020-08-27 07:00] VITALS: BP 135/51
[2020-08-27] MEDS: POLYVINYL ALCOHOL 1.4% OPHTH SOLUTION 15ML BOTTLE. OU SCH ×3 (08:35→21:49)
[2020-08-27] MEDS: CHOLECALCIFEROL (VITAMIN D3) 1,000 UNIT TABLET PO SCH (08:35)
[2020-08-27] MEDS: MULTIVITAMIN with MINERAL TABLET. PO SCH (08:35)
[2020-08-27] MEDS: cycloSPORINE 0.05% OPHTH DROPERETTE. OU SCH ×2 (08:35→21:00)
[2020-08-27] MEDS: DOXYCYCLINE HYCLATE 100 MG TABLET PO SCH ×2 (08:35→21:50)
[2020-08-27] MEDS: LACTOBACILLUS RHAMNOSUS GG 1 CAPSULE. PO SCH ×2 (08:35→21:50)
[2020-08-27] MEDS: CLOPIDOGREL BISULFATE 75 MG TABLET PO SCH (08:35)
[2020-08-27] MEDS: OMEGA-3 FATTY ACIDS/FISH OIL 1,000 MG CAPSULE. PO SCH ×2 (08:35→21:50)
[2020-08-27] MEDS: DICLOFENAC SODIUM 1% TOPICAL GEL 100GM TUBE. TP SCH ×3 (08:35→21:50)
[2020-08-27 08:38] LABS: HEMATOCRIT 36.8 % (39.0-53.0); HEMOGLOBIN 12.5 g/dL (13.0-17.5)
[2020-08-27 08:55] LABS: CREATININE 0.9 mg/dL (0.7-1.3); GFR 79.5; POTASSIUM 3.5 mmol/L (3.5-5.1)
[2020-08-27] MEDS: HYDROcodone/APAP 5/325MG 1 TAB TABLET PO PRN ×2 (10:09→17:43)
--- NOTE | 2020-08-27 10:42 | PN ---
DATE: 08/27/2020 SUBJECTIVE: The patient is resting, slightly propped up in bed, in no apparent respiratory distress. He apparently has been complaining of muscle spasm in his right thigh area and also pain in his right big toe. PHYSICAL EXAMINATION: GENERAL: When I examined him, he looked pale. No jaundice, cyanosis, or thyromegaly. No jugular venous distention. No lower limb edema. VITAL SIGNS: His heart rate was 66, blood pressure was 135/51, temperature was 97.7, respiratory rate was 18, and oxygen saturation was 92%. HEAD, EYES, EARS, NOSE AND THROAT: Showed normocephalic, atraumatic. NECK: Supple. HEART: Showed normal first and second heart sounds. No gallop, rub or murmur. CHEST: Showed central trachea, equal bilateral chest expansion, air entry, vesicular sounds. No crepitation or rhonchi. ABDOMEN: Distended, soft, nontender. NEUROLOGIC: He is demented, but without any obvious lateralizing sign. His intake was 1600, output was 1650. LABORATORY DATA: Showed a serum sodium 138, potassium 3.5, chloride 107, bicarbonate 20, anion gap of 11, BUN 11, creatinine 0.9, estimated GFR was 79 mL per minute. His glucose was 92 and calcium was 8. His white cell count was 9600, hemoglobin 12.5, hematocrit 36.8, MCV was 239. His coronavirus PCR was not detectable. ASSESSMENT: 1. Severe peripheral vascular disease with right heel pain and the areas of skin breakdown consistent with severe peripheral vascular disease. CT angio is consistent with severe peripheral arterial disease. 2. Other medical problems include: A. Hypertension. B. Hyperlipidemia. C. Hypothyroidism. D. Dementia. E. Cerebrovascular accident. PLAN: To continue with pain management. I will add baclofen 5 mg every 8 hours as needed for muscle spasm. He should be n.p.o. from midnight tonight and should not receive any Lovenox after today. JARRED VELA MD DR: ELADIO/galdino JOB#: [id number] / [id number]
[2020-08-27 11:00] VITALS: BP 126/43
[2020-08-27] MEDS: BACLOFEN 10 MG TABLET. PO PRN ×2 (11:05→17:39)
[2020-08-27] MEDS: IV NORMAL SALINE 1000ML BAG 1,000 ML IV SCH ×2 (11:06→23:12)
[2020-08-27] MEDS: MORPHINE SULFATE 4 MG/ML VIAL. IV PRN (14:24)
[2020-08-27 15:00] VITALS: BP 142/54
[2020-08-27] MEDS: ENOXAPARIN 40 MG/0.4 ML SYRINGE. SQ SCH (16:26)
--- NOTE | 2020-08-27 16:33 | NUR ---
Approximately 1430 pt had 3 visitors in the room. Visitors were reminded of visitors policy of 2 per room at a time. they verbalized understanding. upon entering the room to give meds, 2 visitors were witnessed exiting the room while 1 remained in the room. Will continue to monitor.
[2020-08-27 19:00] VITALS: BP 154/58
[2020-08-27] MEDS: SIMVASTATIN 40 MG TABLET. PO SCH (21:50)
[2020-08-27 23:00] VITALS: BP 162/63
[2020-08-28] VITALS (11 sets, daily range): BP systolic 138–174; BP diastolic 53–69
[2020-08-28] MEDS: PANTOPRAZOLE 40 MG TABLET.DR. PO SCH (00:39)
[2020-08-28] MEDS: LEVOTHYROXINE 88 MCG TABLET PO SCH (00:39)
[2020-08-28] MEDS: MORPHINE SULFATE 4 MG/ML VIAL. IV PRN (02:43)
[2020-08-28 07:41] LABS: HEMATOCRIT 38.7 % (39.0-53.0); HEMOGLOBIN 13.1 g/dL (13.0-17.5); RED BLOOD COUNT 4.01 x10^6/uL (4.30-5.70); RED CELL DISTRIBUTION WIDTH 13.4 % (11.5-14.5); WHITE BLOOD COUNT 14.2 x10^3/uL (4.0-11.0)
[2020-08-28 07:52] LABS: PROTHROMBIN TIME PATIENT 15.1 SEC (11.7-14.0)
[2020-08-28 07:58] LABS: CALCIUM 8.3 mg/dL (8.5-10.1); CREATININE 0.9 mg/dL (0.7-1.3); GFR 79.5; POTASSIUM 3.3 mmol/L (3.5-5.1)
[2020-08-28] MEDS ORDERED: LIDOCAINE WITH 8.4% SOD BICARB 3 ML DISP.SYRIN. ONE (08:15)
[2020-08-28] MEDS ORDERED: IODIXANOL 320 MG/ML 100 ML VIAL. ONE (08:15)
[2020-08-28] MEDS ORDERED: BIVALIRUDIN 250 MG VIAL. IV ONE ×4 (08:17→10:30)
[2020-08-28] MEDS ORDERED: MIDAZOLAM HCL/PF 2 MG/2 ML VIAL. ONE (08:41)
[2020-08-28] MEDS ORDERED: fentaNYL PF VIAL 100 MCG/2 ML VIAL ONE (08:41)
[2020-08-28] MEDS: OMEGA-3 FATTY ACIDS/FISH OIL 1,000 MG CAPSULE. PO SCH ×2 (09:00→21:28)
[2020-08-28] MEDS: cycloSPORINE 0.05% OPHTH DROPERETTE. OU SCH ×2 (09:00→21:28)
[2020-08-28] MEDS: LACTOBACILLUS RHAMNOSUS GG 1 CAPSULE. PO SCH ×2 (09:00→21:28)
[2020-08-28] MEDS: CHOLECALCIFEROL (VITAMIN D3) 1,000 UNIT TABLET PO SCH (09:00)
[2020-08-28] MEDS: DOXYCYCLINE HYCLATE 100 MG TABLET PO SCH ×2 (09:00→21:28)
[2020-08-28] MEDS: DICLOFENAC SODIUM 1% TOPICAL GEL 100GM TUBE. TP SCH ×3 (09:00→21:29)
[2020-08-28] MEDS: CLOPIDOGREL BISULFATE 75 MG TABLET PO SCH (09:00)
[2020-08-28] MEDS: POLYVINYL ALCOHOL 1.4% OPHTH SOLUTION 15ML BOTTLE. OU SCH ×3 (09:00→21:29)
[2020-08-28] MEDS: MULTIVITAMIN with MINERAL TABLET. PO SCH (09:00)
[2020-08-28] MEDS ORDERED: IODIXANOL 320 MG/ML 100 ML VIAL. IART ONE (09:30)
[2020-08-28] MEDS ORDERED: LIDOCAINE WITH 8.4% SOD BICARB 3 ML DISP.SYRIN. IJ ONE (09:30)
[2020-08-28] MEDS ORDERED: fentaNYL PF VIAL 100 MCG/2 ML VIAL IV ONE (09:30)
[2020-08-28] MEDS ORDERED: MIDAZOLAM HCL/PF 2 MG/2 ML VIAL. IV ONE (09:30)
[2020-08-28] MEDS ORDERED: hydrALAZINE 20 MG/ML VIAL. ONE (09:51)
[2020-08-28] MEDS ORDERED: hydrALAZINE 20 MG/ML VIAL. IVP ONE (10:00)
--- NOTE | 2020-08-28 10:02 | NUR ---
SW following. Discussed with RN, pt from [facility], COVID-19 negative. Pt having an aortogram today. Pt not ready for discharge today. SW will continue to follow.
[2020-08-28] MEDS ORDERED: IODIXANOL 320 MG/ML 50ML VIAL. ONE (10:41)
[2020-08-28] MEDS ORDERED: CONTRAST GIVEN. MC PRN (10:45)
--- NOTE | 2020-08-28 10:59 | PN ---
DATE: 08/28/2020 SUBJECTIVE: The patient is resting, slightly propped up in bed, in no apparent respiratory distress. On questioning him, he continued to complain of pain in his right foot and right thigh. Nursing staff, however, did not voice any concerns, that he had an uneventful night. He is scheduled for aortogram and runoff and possible intervention. PHYSICAL EXAMINATION: GENERAL: When I saw him this morning, he looked pale, but no jaundice, cyanosis or thyromegaly. No jugular venous distention. No lower limb edema. VITAL SIGNS: His heart rate was 72, blood pressure was 174/64, temperature was 98, respiratory rate was 18 and oxygen saturation was 94%. HEAD, EYES, EARS, NOSE, AND THROAT: Showed normocephalic, atraumatic. NECK: Supple. HEART: Normal first and second heart sounds with no gallop, rub or murmur. CHEST: Showed central trachea, equal bilateral chest expansion, air entry, vesicular sounds. No crepitation or rhonchi. ABDOMEN: Scaphoid, soft, nontender. NEUROLOGIC: He is demented, but without any obvious lateralizing sign. ASSESSMENT AND PLAN: 1. The patient has areas of skin breakdown consistent with severe peripheral vascular disease in his right foot and heel. CT angio is consistent also with severe peripheral vascular disease. He is scheduled for aortogram and runoff and possible intervention. 2. Other medical problems include: A. Hypertension. B. Hyperlipidemia. C. Hypothyroidism. D. Dementia. E. Cerebrovascular accident. JARRED VELA MD DR: ELADIO/galdino JOB#: [id number] / [id number]
[2020-08-28] MEDS ORDERED: IODIXANOL 320 MG/ML 50ML VIAL. IART ONE (11:15)
[2020-08-28] MEDS: IV NORMAL SALINE 1000ML BAG 1,000 ML IV SCH ×2 (11:37→23:44)
[2020-08-28] MEDS: BACLOFEN 10 MG TABLET. PO PRN (15:21)
--- NOTE | 2020-08-28 15:56 | PDOC ---
PROGRESS NOTES Date of Service DATE: 08/28/20 TIME: 15:39 Subjective Subjective He continues to have severe right foot pain. Also notes intermittent cramping in the right thigh. No chest pain or shortness of breath. He had angiogram today that showed occlusion of the right mid popliteal artery and tibial arteries. There is distal reconstitution of the AT and PT arteries. He had successful crossing and treatment of the popliteal occlusion with flow through the AT. Objective Objective Vital Signs Date Time Temp Pulse Resp B/P (MAP) Pulse Ox O2 Delivery O2 Flow Rate FiO2 08/28/20 12:30 74 140/59 (86) 94 Nasal Cannula 2.0 08/28/20 11:16 19 08/28/20 07:00 98.0 98.0 Intake and Output 08/28/20 07:00 Output Total 1300 ml Balance -1300 ml Output Urine Total 1300 ml Physical Exam Abdomen: Soft, No tenderness Heart: Regular rate Extremities: Other (Left femoral puncture site intact, normal distal capillary refill in the right foot, fissures with eschar in the right heel as well as dry eschar on distal right 5th toe.) General: Alert, No acute distress Lungs: Normal air movement Neck: Supple Diagnosis DIAGNOSIS Reviewed angiogram with images as noted above. Assessment Assessment 1) Severe peripheral artery disease with rest pain and early gangrene 2) HTN 3) Dementia Plan Plan of Care May resume activity as tolerated starting tomorrow. Would continue Plavix and ASA 81 mg daily. I discussed the poor emt intermediate patency of right leg intervention. Would recommend follow up with me in 3-4 weeks with RUDDY. May return to facility as early as tomorrow from Vascular standpoint. Comment Review of Relevant I have reviewed the following items hector (where applicable) has been applied. Labs Laboratory Tests Test 08/27/20 08:16 08/28/20 06:45 Hemoglobin 12.5 g/dL (13.0-17.5) 13.1 g/dL (13.0-17.5) Hematocrit 36.8 % (39.0-53.0) 38.7 % (39.0-53.0) Sodium Level 138 mmol/L (136-145) 140 mmol/L (136-145) Potassium Level 3.5 mmol/L (3.5-5.1) 3.3 mmol/L (3.5-5.1) Chloride Level 107 mmol/L (98-107) 107 mmol/L (98-107) Carbon Dioxide Level 20 mmol/L (21-32) 23 mmol/L (21-32) Anion Gap 11 (6-14) 10 (6-14) Blood Urea Nitrogen 11 mg/dL (8-26) 7 mg/dL (8-26) Creatinine 0.9 mg/dL (0.7-1.3) 0.9 mg/dL (0.7-1.3) Estimated GFR (Cockcroft-Gault) 79.5 79.5 Glucose Level 92 mg/dL (70-99) 93 mg/dL (70-99) Calcium Level 8.0 mg/dL (8.5-10.1) 8.3 mg/dL (8.5-10.1) White Blood Count 14.2 x10^3/uL (4.0-11.0) Red Blood Count 4.01 x10^6/uL (4.30-5.70) Mean Corpuscular Volume 97 fL (79-100) Mean Corpuscular Hemoglobin 33 pg (25-35) Mean Corpuscular Hemoglobin Concent 34 g/dL (31-37) Red Cell Distribution Width 13.4 % (11.5-14.5) Platelet Count 250 x10^3/uL (140-400) Prothrombin Time 15.1 SEC (11.7-14.0) Prothromb Time International Ratio 1.2 (0.8-1.1) Laboratory Tests Test 08/28/20 06:45 White Blood Count 14.2 x10^3/uL (4.0-11.0) Red Blood Count 4.01 x10^6/uL (4.30-5.70) Hemoglobin 13.1 g/dL (13.0-17.5) Hematocrit 38.7 % (39.0-53.0) Mean Corpuscular Volume 97 fL (79-100) Mean Corpuscular Hemoglobin 33 pg (25-35) Mean Corpuscular Hemoglobin Concent 34 g/dL (31-37) Red Cell Distribution Width 13.4 % (11.5-14.5) Platelet Count 250 x10^3/uL (140-400) Prothrombin Time 15.1 SEC (11.7-14.0) Prothromb Time International Ratio 1.2 (0.8-1.1) Sodium Level 140 mmol/L (136-145) Potassium Level 3.3 mmol/L (3.5-5.1) Chloride Level 107 mmol/L (98-107) Carbon Dioxide Level 23 mmol/L (21-32) Anion Gap 10 (6-14) Blood Urea Nitrogen 7 mg/dL (8-26) Creatinine 0.9 mg/dL (0.7-1.3) Estimated GFR (Cockcroft-Gault) 79.5 Glucose Level 93 mg/dL (70-99) Calcium Level 8.3 mg/dL (8.5-10.1) Medications Current Medications Acetaminophen (Tylenol) 650 mg PRN Q4HRS PRN PO MILD PAIN / TEMP > 100.3'F; Start 08/23/20 at 20:00 Clopidogrel Bisulfate (Plavix) 75 mg DAILY PO Last administered on 08/27/20at 08:35; Start 08/24/20 at 09:00 Cyclosporine (Restasis) 1 drop BID OU Last administered on 08/27/20at 21:00; Start 08/23/20 at 21:00 Levothyroxine Sodium (Synthroid) 88 mcg DAILY06 PO Last administered on 08/27/20at 05:51; Start 08/24/20 at 06:00 Simvastatin (Zocor) 40 mg HS PO Last administered on 08/27/20at 21:50; Start 08/23/20 at 21:00 Glycerin/ Hypromellose/ Polyethylene (Artificial Tears) 1 drop TID OU Last administered on 08/28/20at 15:27; Start 08/23/20 at 21:00 Non-Formulary Medication (Gluc Bran Dipo Ch/ Rodrigue Bran/C/Melvin (Glucosamine Chondroitin Caplet)) 1 each DAILY PO ; Start 08/24/20 at 09:00; Status UNV Non-Formulary Medication (Loteprednol Etabonate (Lotemax)) 5 ml DAILY OP ; Start 08/24/20 at 09:00; Status UNV Magnesium Hydroxide (Milk Of Magnesia) 2,400 mg PRN DAILY PRN PO CONSTIPATION; Start 08/23/20 at 18:45 Fish Oil (Fish Oil) 1,000 mg BID PO Last administered on 08/27/20at 21:50; Start 08/23/20 at 21:00 Pantoprazole Sodium (Protonix) 40 mg DAILYAC PO Last administered on 08/27/20at 05:51; Start 08/24/20 at 07:30 Lactobacillus Rhamnosus (Culturelle) 1 cap BID PO Last administered on 08/27/20at 21:50; Start 08/23/20 at 21:00 Vitamin D (Vitamin D3) 500 unit DAILY PO Last administered on 08/27/20at 08:35; Start 08/24/20 at 09:00 Doxycycline Hyclate (Vibra-Tab) 100 mg BID PO Last administered on 08/27/20at 21:50; Start 08/23/20 at 21:00; Stop 08/31/20 at 21:59 Acetaminophen/ Hydrocodone Bitart (Lortab 5/325) 1 tab PRN Q6HRS PRN PO MODERATE - SEVERE PAIN Last administered on 08/27/20at 17:43; Start 08/23/20 at 18:15 Multivitamins (Thera M Plus) 1 tab DAILY PO Last administered on 08/27/20at 08:35; Start 08/24/20 at 09:00 Diclofenac Sodium (Voltaren) 1 gael TID TP Last administered on 08/28/20at 15:25; Start 08/23/20 at 21:00 Sodium Chloride 1,000 ml @ 75 mls/hr [id number] IV Last administered on 08/28/20at 11:37; Start 08/24/20 at 22:00 Morphine Sulfate (Morphine Sulfate) 4 mg PRN Q4HRS PRN IV MODERATE TO SEVERE PAIN Last administered on 08/28/20at 02:43; Start 08/25/20 at 08:30 Iohexol (Omnipaque 350 Mg/ml) 95 ml 1X ONCE IV Last administered on 08/25/20at 08:30; Start 08/25/20 at 08:30; Stop 08/25/20 at 08:31; Status DC Info (CONTRAST GIVEN -- Rx MONITORING) 1 each PRN DAILY PRN MC SEE COMMENTS; Start 08/25/20 at 08:45; Stop 08/27/20 at 08:44; Status DC Enoxaparin Sodium (Lovenox 30mg Syringe) 30 mg Q24H SQ ; Start 08/25/20 at 15:30; Status UNV Enoxaparin Sodium (Lovenox 40mg Syringe) 40 mg Q24H SQ Last administered on 08/27/20at 16:26; Start 08/25/20 at 16:00; Stop 08/27/20 at 16:01; Status DC Baclofen (Lioresal) 5 mg TID PRN PO muscle spasm Last administered on 08/28/20at 15:21; Start 08/27/20 at 10:00 Lidocaine HCl (Buffered Lidocaine 1%) 3 ml STK-MED ONCE .ROUTE ; Start 08/28/20 at 08:15; Stop 08/28/20 at 08:16; Status DC Iodixanol (Visipaque 320) 100 ml STK-MED ONCE .ROUTE ; Start 08/28/20 at 08:15; Stop 08/28/20 at 08:16; Status DC Bivalirudin (Angiomax) 250 mg STK-MED ONCE IV ; Start 08/28/20 at 08:17; Stop 08/28/20 at 08:18; Status DC Midazolam HCl (Versed) 2 mg STK-MED ONCE .ROUTE ; Start 08/28/20 at 08:41; Stop 08/28/20 at 08:41; Status DC Fentanyl Citrate (Fentanyl 2ml Vial) 100 mcg STK-MED ONCE .ROUTE ; Start 08/28/20 at 08:41; Stop 08/28/20 at 08:41; Status DC Lidocaine HCl (Buffered Lidocaine 1%) 3 ml 1X ONCE IJ Last administered on 08/28/20at 11:05; Start 08/28/20 at 09:30; Stop 08/28/20 at 09:35; Status DC Midazolam HCl (Versed) 2 mg 1X ONCE IV Last administered on 08/28/20at 11:08; Start 08/28/20 at 09:30; Stop 08/28/20 at 09:35; Status DC Fentanyl Citrate (Fentanyl 2ml Vial) 100 mcg 1X ONCE IV Last administered on 08/28/20at 11:07; Start 08/28/20 at 09:30; Stop 08/28/20 at 09:35; Status DC Iodixanol (Visipaque 320) 100 ml 1X ONCE IART Last administered on 08/28/20at 11:05; Start 08/28/20 at 09:30; Stop 08/28/20 at 09:35; Status DC Bivalirudin (Angiomax) 250 mg 1X ONCE IV Last administered on 08/28/20at 11:05; Start 08/28/20 at 09:30; Stop 08/28/20 at 09:35; Status DC Bivalirudin (Angiomax) 250 mg STK-MED ONCE IV ; Start 08/28/20 at 09:46; Stop 08/28/20 at 09:47; Status DC Hydralazine HCl (Apresoline Inj) 20 mg STK-MED ONCE .ROUTE ; Start 08/28/20 at 09:51; Stop 08/28/20 at 09:51; Status DC Hydralazine HCl (Apresoline Inj) 10 mg 1X ONCE IVP Last administered on 08/28/20at 11:09; Start 08/28/20 at 10:00; Stop 08/28/20 at 10:02; Status DC Bivalirudin (Angiomax) 250 mg 1X ONCE IV Last administered on 08/28/20at 11:05; Start 08/28/20 at 10:30; Stop 08/28/20 at 10:33; Status DC Info (CONTRAST GIVEN -- Rx MONITORING) 1 each PRN DAILY PRN MC SEE COMMENTS; Start 08/28/20 at 10:45; Stop 08/30/20 at 10:44 Iodixanol (Visipaque 320) 50 ml STK-MED ONCE .ROUTE ; Start 08/28/20 at 10:41; Stop 08/28/20 at 10:41; Status DC Iodixanol (Visipaque 320) 50 ml 1X ONCE IART Last administered on 08/28/20at 11:15; Start 08/28/20 at 11:15; Stop 08/28/20 at 11:16; Status DC Active Scripts Active Clopidogrel (Clopidogrel Bisulfate) 75 Mg Tablet 1 Tab PO DAILY 30 Days Reported Imodium A-D (Loperamide Hcl) 1 Mg/7.5 Ml Liquid 2 Mg PO PRN DAILY PRN Milk Of Magnesia (Magnesium Hydroxide) 2,400 Mg/10 Ml Oral.susp 2,400 Mg PO PRN DAILY Donepezil Hcl 5 Mg Tab.rapdis 5 Mg PO HS Lutein 15 Mg Softgel (Lutein Extract/Zeaxanthin Ext) 1 Each Capsule 1 Each PO DAILY Genteal Tears 0.1%-0.3% Drop (Dextran 70/Hypromellose) 15 Ml Drops 15 Ml OP TID Lotemax (Loteprednol Etabonate) 5 Ml Drops.susp 5 Ml OP DAILY Alendronate Sodium 70 Mg Tablet 70 Mg PO WEEKLY Takes on Mondays Omeprazole 20 Mg Capsule. 20 Mg PO DAILY Simvastatin 40 Mg Tablet 40 Mg PO HS Glucosamine Chondroitin Caplet (Gluc Bran Dipo Ch/Rodrigue Bran/C/Melvin) 1 Each Tablet 1 Each PO DAILY [place] 3 Fish Oil Softgel ([place]-3 Fatty Acids/Fish Oil) 1 Each Capsule. 1 Each PO BID Aspir-Low (Aspirin) 81 Mg Tablet. 81 Mg PO DAILY Tylenol (Acetaminophen) 325 Mg Tablet 650 Mg PO Q4HRS Levothyroxine Sodium 112 Mcg Tablet 112 Mcg PO DAILYAC Restasis (Cyclosporine) 1 Each Droperette 1 Each OU BID Vitals/I & O Vital Sign - Last 24 Hours 08/27/20 08/27/20 08/27/20 08/27/20 17:43 19:00 19:35 21:06 Temp 100.2 99.2 100.2 99.2 Pulse 92 Resp 18 B/P (MAP) 154/58 (90) Pulse Ox 91 O2 Delivery Nasal Cannula Room Air Room Air 08/27/20 08/28/20 08/28/20 08/28/20 23:00 02:43 03:00 03:17 Temp 99.0 97.6 99.0 97.6 Pulse 84 86 Resp 18 20 B/P (MAP) 162/63 (96) 169/68 (101) Pulse Ox 94 94 O2 Delivery Room Air Room Air Room Air Room Air 08/28/20 08/28/20 08/28/20 08/28/20 07:00 08:00 11:07 11:09 Temp 98.0 98.0 Pulse 72 77 Resp 18 19 B/P (MAP) 174/64 (100) 158/60 Pulse Ox 94 97 O2 Delivery Room Air Room Air Nasal Cannula O2 Flow Rate 2.0 2.0 08/28/20 08/28/20 08/28/20 08/28/20 11:16 11:45 12:00 12:00 Pulse 60 85 66 75 Resp 19 B/P (MAP) 138/61 (86) 141/67 (91) 168/65 (99) Pulse Ox 97 98 93 93 O2 Delivery Nasal Cannula Nasal Cannula Room Air Nasal Cannula O2 Flow Rate 2.0 2.0 2.0 08/28/20 08/28/20 12:15 12:30 Pulse 75 74 B/P (MAP) 142/54 (83) 140/59 (86) Pulse Ox 93 94 O2 Delivery Nasal Cannula Nasal Cannula O2 Flow Rate 2.0 2.0 Intake and Output 08/27/20 08/27/20 08/28/20 15:00 23:00 07:00 Output Total 200 ml 1100 ml Balance -200 ml -1100 ml Justifications for Admission Other Justification JANETH PERLA MD Aug 28, 2020 15:56
--- NOTE | 2020-08-28 16:08 | RAD ---
08/28/2020 1:59 PM Procedure: 1. Right lower extremity angiography 2. Treatment multifocal, tandem right SFA stenoses with placement of self-expanding stent 3. 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 Discussion of the risks included, but was not limited to, those that are most frequent and those that are rare but possibly severe or life-threatening, as well as the possibility of unforeseen complications. All elements of maximal sterile barrier technique including the use of a cap, mask, sterile gown, sterile gloves, large sterile sheet, appropriate hand hygiene, and 2% chlorhexidine for cutaneous antisepsis (or acceptable alternative antiseptic per current guidelines) were followed for this procedure. The left groin was prepped and draped using sterile barrier technique. Ultrasound evaluation demonstrates left common femoral artery to be calcified but patent. Left common femoral artery was accessed using direct ultrasound guidance and micropuncture technique. Ultrasound images were saved the medical record. 5 Irish sheath was placed. A catheter was advanced into the right common femoral artery. Right lower extremity angiography was performed. The proximal right SFA demonstrates mild nonflow-limiting narrowings. In the mid SFA there are multiple high-grade stenoses tandem stenoses extending to the adductor canal. Popliteal artery above the knee is patent. There is occlusion of the popliteal artery just below the knee. Occlusion extends past the origins of all 3 tibial vessels. There is reconstitution of the mid anterior tibial artery extending to the week dorsalis pedis artery. There is reconstitution of the distalmost posterior tibial artery. The peroneal artery is not adequately reconstituted. SFA lesions were traversed. These were treated with placement of a 7 mm balloon expandable stent, postdilated to 7 mm which resulted in significantly improved morphology and flow. The anterior tibial artery occlusion was traversed and treated with balloon dilatation with a combination of 1.5 mm balloons extending to the level of the ankle proximally to 2.5 mm. This resulted in significantly improved morphology and flow. Attempts at recanalization of the posterior tibial artery were unsuccessful. The sheath was removed. A Mynx closure device was deployed in an additional manual pressure held. No hematoma or other immediate complication was identified. Total fluoroscopy time: 30.4 min Dose area product: 57 Gycm2 The procedures performed under conscious sedation including continuous cardiopulmonary monitoring via dedicated sedation nurse. [id number] sedation time: 144 minutes Impression: 1. Right lower extremity angiography demonstrates multifocal stenoses of the right SFA successfully treated with placement of self-expanding stent 2. 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 3. Reconstruction of the distal popliteal artery and anterior tibial artery to the level of the proximal foot was achieved with balloon angioplasty
[2020-08-28] MEDS: HYDROcodone/APAP 5/325MG 1 TAB TABLET PO PRN (19:14)
[2020-08-28] MEDS: SIMVASTATIN 40 MG TABLET. PO SCH (21:28)
[2020-08-29] MEDS: MORPHINE SULFATE 4 MG/ML VIAL. IV PRN (00:15)
[2020-08-29] MEDS: BACLOFEN 10 MG TABLET. PO PRN (00:15)
[2020-08-29 03:30] VITALS: BP 147/80
[2020-08-29] MEDS: LEVOTHYROXINE 88 MCG TABLET PO SCH (05:41)
[2020-08-29] MEDS: PANTOPRAZOLE 40 MG TABLET.DR. PO SCH (05:41)
[2020-08-29] MEDS: HYDROcodone/APAP 5/325MG 1 TAB TABLET PO PRN (05:59)
[2020-08-29 07:00] VITALS: BP 182/68
[2020-08-29] MEDS: POLYVINYL ALCOHOL 1.4% OPHTH SOLUTION 15ML BOTTLE. OU SCH ×2 (08:02→14:00)
[2020-08-29] MEDS: CHOLECALCIFEROL (VITAMIN D3) 1,000 UNIT TABLET PO SCH (08:03)
[2020-08-29] MEDS: cycloSPORINE 0.05% OPHTH DROPERETTE. OU SCH (08:03)
[2020-08-29] MEDS: OMEGA-3 FATTY ACIDS/FISH OIL 1,000 MG CAPSULE. PO SCH (08:03)
[2020-08-29] MEDS: CLOPIDOGREL BISULFATE 75 MG TABLET PO SCH (08:03)
[2020-08-29] MEDS: MULTIVITAMIN with MINERAL TABLET. PO SCH (08:03)
[2020-08-29] MEDS: LACTOBACILLUS RHAMNOSUS GG 1 CAPSULE. PO SCH (08:04)
[2020-08-29] MEDS: DOXYCYCLINE HYCLATE 100 MG TABLET PO SCH (08:04)
[2020-08-29] MEDS: DICLOFENAC SODIUM 1% TOPICAL GEL 100GM TUBE. TP SCH ×2 (08:04→14:00)
--- NOTE | 2020-08-29 08:08 | PDOC ---
Provider Note Date of Service: DATE: 08/29/20 TIME: 08:06 Provider Note IR NOTE Doing better. Probably component of chronic hypotension. INR went up to 2.3. Ideally would normalize before angio/intervention. Patient will dialyze today. Will follow, and plan on angio when INR in range. Justifications for Admission Other Justification MELISSA MARES MD Aug 29, 2020 08:08
--- NOTE | 2020-08-29 08:59 | SNU/HH DC ---
DISCHARGE ORDERS DISCHARGE INFORMATION: DISCHARGE DATE: Aug 29, 2020 FINAL DIAGNOSIS severe peripheral vascular disease hypertension dementia CONDITION ON DISCHARGE: Stable CODE STATUS: Code Status: DNR/DNI RETIREMENT: SNF STAY <30 DAYS: Yes POST DISCHARGE ORDERS: ACTIVITY ORDERS: Resume previous activity, Activity as tolerated WEIGHT BEARING STATUS: Full weight bearing, As tolerated DIET AFTER DISCHARGE: Regular CHECKS AFTER DISCHARGE: CHECKS AFTER DISCHARGE: Check blood press - daily TREATMENT/EQUIPMENT ORDERS: ADAPTIVE EQUIPMENT NEEDED: None Physical Therapy For: Evalulation/Treatment Occupational Therapy For: Evaluation/Treatment DISCHARGE MEDICATIONS: Home Meds Active Scripts Clopidogrel Bisulfate (CLOPIDOGREL) 75 Mg Tablet, 1 TAB PO DAILY for tia for 30 Days, #30 TAB 1 Refill Prov:JARRED VELA MD 05/10/19 Reported Medications Loperamide Hcl (IMODIUM A-D) 1 Mg/7.5 Ml Liquid, 2 MG PO PRN DAILY PRN for DIARRHEA, LIQUID 05/07/19 Magnesium Hydroxide (MILK OF MAGNESIA) 2,400 Mg/10 Ml Oral.susp, 2400 MG PO PRN DAILY for constipation, MISC 05/07/19 Donepezil Hcl (DONEPEZIL HCL) 5 Mg Tab.rapdis, 5 MG PO HS for memory support, TAB 05/07/19 Lutein Extract/Zeaxanthin Ext (LUTEIN 15 MG SOFTGEL) 1 Each Capsule, 1 EACH PO DAILY for eye health, CAP 05/07/19 Dextran 70/Hypromellose (Genteal Tears 0.1%-0.3% Drop) 15 Ml Drops, 15 ML OP TID for dry eyes, DROP 05/07/19 Loteprednol Etabonate (LOTEMAX) 5 Ml Drops.susp, 5 ML OP DAILY for conjuctivitis, DROP 05/07/19 Alendronate Sodium (ALENDRONATE SODIUM) 70 Mg Tablet, 70 MG PO WEEKLY for osteoporosis, TAB Takes on Mondays05/07/19 Omeprazole (OMEPRAZOLE) 20 Mg Capsule.dr, 20 MG PO DAILY for GERD, CAP 05/07/19 Simvastatin (SIMVASTATIN) 40 Mg Tablet, 40 MG PO HS for FOR CHOLESTEROL, #30 TAB 0 Refills 05/07/19 Gluc Bran Dipo Ch/Rodrigue Bran/C/Melvin (GLUCOSAMINE CHONDROITIN CAPLET) 1 Each Tablet, 1 EACH PO DAILY for osteoporosis, TAB 05/07/19 [place]-3 Fatty Acids/Fish Oil ([place] 3 FISH OIL SOFTGEL) 1 Each Capsule.dr, 1 EACH PO BID for heart health, CAP 05/07/19 Aspirin (ASPIR-LOW) 81 Mg Tablet.dr, 81 MG PO DAILY for hx stroke, TAB.SR 05/07/19 Acetaminophen (TYLENOL) 325 Mg Tablet, 650 MG PO Q4HRS for pain/temp, TAB 05/07/19 Levothyroxine Sodium (LEVOTHYROXINE SODIUM) 112 Mcg Tablet, 112 MCG PO DAILYAC for THYROID SUPPLEMENT, #30 TAB 0 Refills 05/07/19 Cyclosporine (RESTASIS) 1 Each Droperette, 1 EACH OU BID for dry eyes, DROP 05/07/19 JARRED VELA MD Aug 29, 2020 08:59
--- NOTE | 2020-08-29 09:52 | NUR ---
SS following up with discharge planning. SS reviewed pt chart and discussed with pt RN. Pt is currently on room air. COVID19 negative. Pt is LTC resident from [place], ; fax [phone]. Discharge order on the chart for return to [facility]. SS phoned and faxed discharge orders to facility. [facility] to contact SS with transportation time. SS will continue to follow for discharge planning.
--- NOTE | 2020-08-29 10:39 | NUR ---
Report called to [facility] at 1039. Report given to Wesley Ken
[2020-08-29 11:00] VITALS: BP 130/55
--- NOTE | 2020-08-29 11:04 | NUR ---
SS following up with discharge planning. Pt will discharge today and return to [facility] at 1330. Pt, pt's RN, and pt's family notified.
--- NOTE | 2020-08-29 14:13 | NUR ---
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 report called. IV discontinued.
--- NOTE | 2020-09-17 09:35 | DS ---
DATE OF DISCHARGE: 08/29/2020 HOSPITAL COURSE: The patient is an 89-year-old male patient, a resident at [facility], who was noted by nursing staff to have a swollen, erythematous right foot. The pain was initially on the right heel. Before I saw him by description of nursing staff, I started him on doxycycline; however, when I saw him personally, he clearly has no palpable pulses, the foot was cold and therefore, I did arrange for an arterial Doppler ultrasound, which showed the patient has more than 90% stenosis of the right thigh superficial femoral artery with severe distal disease below knee and some flow reconstitution. He also has severe left leg below-knee disease with flow via anterior tibial artery only and therefore, he was admitted directly to [facility] and we have consulted the vascular surgeon. He was seen by the vascular surgeon, who recommended doing an angiogram and in fact, he has had an angiogram that showed occlusion of the right mid popliteal artery and tibial artery, had an angioplasty done to his right femoral artery and ballooning of the below-knee, although the vascular surgeon discussed with the family the poor outcome, long-term outcome of the patency of the right leg intervention and recommended also to continue with Plavix and aspirin and once he stabilized, the patient was discharged back to [facility]. PHYSICAL EXAMINATION: GENERAL: When I saw him on the day of discharge, he looked well and was clearly in no apparent respiratory distress. There was no pallor, jaundice, cyanosis or thyromegaly. No jugular venous distension. No lower limb edema. VITAL SIGNS: His heart rate was 73, blood pressure was 130/55, temperature was 97.7, respiratory rate was 18 and his oxygen saturation was 92% on room air. HEAD, EYES, EARS, NOSE AND THROAT: Showed normocephalic, atraumatic. NECK: Supple. HEART: Showed normal first and second heart sounds. No gallop, rub or murmur. CHEST: Clear to auscultation. No crepitation or rhonchi. ABDOMEN: Distended, soft, nontender. NEUROLOGIC: He is demented, but without any obvious lateralizing sign. His intake and output were incompletely recorded. LABORATORY DATA: His lab work showed a white cell count 14,200, hemoglobin 13, hematocrit 39, MCV 97, and platelet count 250,000. His serum sodium was 140, potassium 3.3, chloride 107, bicarbonate 23, anion gap of 10, BUN 7, creatinine 0.9, estimated GFR was 79 mL per minute. His glucose was 93, calcium was 8.3. His prothrombin time was 15.1, INR of 1.2 and his coronavirus by PCR was not detectable. DISCHARGE MEDICATIONS: He was discharged back to [facility] to continue on Tylenol 650 every 4 hours, alendronate 70 mg once a week, aspirin 81 mg once a day, Plavix 75 mg once a day, cyclosporine for Restasis 1 drop to both eyes twice a day. He is on artificial tears 1 drop to both eyes 3 times a day, Aricept 5 mg at bedtime, glucosamine chondroitin sulfate 1 tablet once a day, levothyroxine 112 mcg once a day, loperamide 2 mg every 4 hours as needed. He is on Lotemax 5 mL to both eyes daily. He is on Lutein 50 mg soft gel 1 p.o. daily, magnesium hydroxide for milk of magnesia 30 mL p.o. daily p.r.n. for constipation, omega-3 fatty acid 1 capsule twice a day, omeprazole 20 mg once a day and simvastatin 40 mg at bedtime. 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 Other medical problems include cervical spinal stenosis, generalized osteoarthritis, gastroesophageal reflux disease, coronary artery disease, chronic constipation, hypercholesterolemia, hypothyroidism, benign prostatic hypertrophy. JARRED VELA MD DR: ELADIO/galdino JOB#: [id number] / [id number]
== END 2020-08-29 14:26 | DRG 253 ==
LOC: 4 NORTH 14:13
PROVIDERS: ADMIT Internal Medicine; ATTEND Internal Medicine
PROC: B41F1ZZ Fluoroscopy of Right Lower Extremity Arteries using Low Osmolar Contrast (ICD-10-PCS; principal; 2020-08-28)
PROC: 047K3DZ Dilation of Right Femoral Artery with Intraluminal Device, Percutaneous Approach (ICD-10-PCS; 2020-08-28)
PROC: 047P3ZZ Dilation of Right Anterior Tibial Artery, Percutaneous Approach (ICD-10-PCS; 2020-08-28)
DX: E11.51 Type 2 diabetes mellitus with diabetic peripheral angiopathy without gangrene (principal); E44.0 Moderate protein-calorie malnutrition; L97.519 Non-pressure chronic ulcer of other part of right foot with unspecified severity; E11.621 Type 2 diabetes mellitus with foot ulcer; E78.00 Pure hypercholesterolemia, unspecified; E78.5 Hyperlipidemia, unspecified; E89.0 Postprocedural hypothyroidism; F03.90 Unspecified dementia, unspecified severity, without behavioral disturbance, psychotic disturbance, mood disturbance, and anxiety; G89.4 Chronic pain syndrome; I10 Essential (primary) hypertension; Z68.21 Body mass index [BMI] 21.0-21.9, adult; I25.10 Atherosclerotic heart disease of native coronary artery without angina pectoris; K21.9 Gastro-esophageal reflux disease without esophagitis; M15.9 Polyosteoarthritis, unspecified; M81.0 Age-related osteoporosis without current pathological fracture; I70.201 Unspecified atherosclerosis of native arteries of extremities, right leg; N40.0 Benign prostatic hyperplasia without lower urinary tract symptoms; Z86.73 Personal history of transient ischemic attack (TIA), and cerebral infarction without residual deficits; Z87.440 Personal history of urinary (tract) infections; Z96.651 Presence of right artificial knee joint; Z98.41 Cataract extraction status, right eye; Z98.42 Cataract extraction status, left eye; F32.9 Major depressive disorder, single episode, unspecified; H40.9 Unspecified glaucoma; M48.02 Spinal stenosis, cervical region; Z20.822 Contact with and (suspected) exposure to COVID-19; Z88.1 Allergy status to other antibiotic agents; Z98.49 Cataract extraction status, unspecified eye; Z88.8 Allergy status to other drugs, medicaments and biological substances
CPT/HCPCS: 36415; 37226; 37228; 75635; 75710; 76937; 80048; 80053; 80061; 85014; 85018; 85025; 85027; 85610; 85730; 87426; 99152; 99153; C1713; C1725; C1760; C1769; C1876; C1892; C1894; G0269; J0360; J0583; J1650; J2250; J2270; J3010; J3490; J7030; Q9967; U0003; G0378